=== PATIENT | female | born 1990 | race Caucasian/White ===

== ENCOUNTER 2022-09-26 14:43 | Outpatient (CLI) | payer OTHER, SELFPAY ==
--- NOTE | 2022-09-26 15:00 | CRLHL7_ITS ---
For Patients: As a result of the Cures Act, medical imaging exams and procedure reports are released immediately into your electronic medical record. You may view this report before your referring provider. If you have questions, please contact your health care provider. INDICATION: First trimester scan, establish dates. COMPARISON: None. TECHNIQUE: Real-time michaud-scale imaging of the pelvis was performed. FINDINGS: Sonographic imaging demonstrates a single living intrauterine gestation. The embryo demonstrates a regular cardiac rate measuring 173 beats per minute. The embryo`s crown-rump length measurement of 2.0 cm corresponds to a gestational age of 8 weeks 4 days with a sonographic due date of 05/04/2023. There is a normal-appearing yolk sac. There are no gross abnormalities noted within the embryo at this early state of development. The gestational sac has a normal appearance. There is no evidence of a perigestational hemorrhage. The amount of fluid within the sac appears appropriate for gestational age. The cervix is closed. The myometrium appears normal. The ovaries are of normal size. There are no suspicious fluid collections noted in the cul-de-sac. IMPRESSION: Normal first trimester OB ultrasound exam. Gestational age calculated at 8 weeks 4 days with a sonographic due date of 05/04/2023. Dictated by Nick Harper MD @ 09/27/2022 3:21:14 PM (Electronically Signed)
== END 2022-09-26 14:44 | disposition home or self-care (01) ==
LOC: US 14:46
PROVIDERS: PCP Physician Assistant; Visit Provider Physician Assistant
DX: Z34.91 Encounter for supervision of normal pregnancy, unspecified, first trimester (principal); Z3A.08 8 weeks gestation of pregnancy
CPT/HCPCS: 76817; 86592; 86703; 86762; 86787; 86803; 86850; 86900; 86901; 87086; 87340; 87491; 87591

== ENCOUNTER 2022-12-12 14:56 | Outpatient (CLI) | payer OTHER, SELFPAY ==
--- NOTE | 2022-12-12 15:00 | CRLHL7_ITS ---
For Patients: As a result of the 21st Century Cures Act, medical imaging exams and procedure reports are released immediately into your electronic medical record. You may view this report before your referring provider. If you have questions, please contact your health care provider. OB ULTRASOUND ??? ANATOMY SURVEY JAZIEL by LMP: 05/02/2023. GA: 19 w, 6 d. PREVIOUS: US 09/26/2022. INDICATION: Basic anatomy survey. FINDINGS: position: Breech. Cervix: Visualized. Technique: Transabdominal. Length of closed cervix: 3 cm. Placenta/cord: Posterior. Technique: Transabdominal. Placenta tip to internal OS: 4.3 cm. Umbilical Cord: 3-vessel cord. Placenta insertion: Central. Amniotic Fluid: 4.9 cm SDP (greater than/equal to: 2- less than 8 cm). SURVEY: Observed Structures Cerebellum: Yes. 2.1 cm; 20 w 6 d. Cisterna Magna: Yes. 3.9 mm. Nuchal Fold: Yes. 3.3 mm. Lateral Ventricle: Yes. 7 mm. CSP: Yes. Midline Falx: Yes. Choroid Plexus: Yes. Spine: Yes. Stomach: Yes. Abd Cord Insertion: Suboptimally visualized. Urinary Bladder: Yes. Kidneys: Yes. Diaphragm: Yes. Nose/lips: Yes. Orbital view: Yes. Profile: Yes. Upper Extremities: Yes. Lower Extremities: Yes. Hands: Yes. Feet: Yes. Four-Chamber Heart: Yes. LVOT: Yes. RVOT: Suboptimally visualized. 3VV: Yes. 3VTV: Yes. BPD: 4.9 cm. 21 w 0 d, 88 percent. HC: 18.3 cm. 20 w 5 d, 80 percent. AC: 15.9 cm. 21 w 0 d, 82 percent. FL: 3.2 cm. 19 w 6 d, 46 percent. FL/AC: 20.04 percent. HC/AC Ratio: 1.15. Heart rate: 131 beats per minute. age by this US: 20 w 5 d. JAZIEL by this US: 04/26/2023. EFW: 363 g. Weight: 13 oz. Percentile by JAZIEL: 84 percent. COMMENT: cord insertion is suboptimally visualized. Right ventricular outflow tract is suboptimally visualized. IMPRESSION: Single live intrauterine gestation. No gross anomalies visualized. cord insertion site and right ventricular outflow tract are suboptimally seen. Patricia Farrell M.D. Diagnostic/Breast Radiologist [email or web address]/Dictated by: Patricia Farrell MD @ 12/13/2022 9:03:00 AM (Electronically Signed)
== END 2022-12-12 14:57 | disposition home or self-care (01) ==
LOC: US 14:57
PROVIDERS: PCP Physician Assistant; Visit Provider Physician Assistant
DX: Z34.92 Encounter for supervision of normal pregnancy, unspecified, second trimester (principal); Z3A.19 19 weeks gestation of pregnancy
CPT/HCPCS: 76805

== ENCOUNTER 2023-04-04 14:15 | Outpatient (CLI) | payer OTHER, SELFPAY | END 2023-04-04 14:16 | disposition home or self-care (01) | LOC: NFLDREF 04-06 12:52 | PROVIDERS: PCP Physician Assistant; Referring Provider Physician Assistant; Visit Provider Obstetrics & Gynecology | DX: Z34.90 Encounter for supervision of normal pregnancy, unspecified, unspecified trimester (principal) | CPT/HCPCS: 87081; 87653 ==

== ENCOUNTER 2023-04-27 15:56 | Inpatient (IN) | payer OTHER, SELFPAY ==
[2023-04-27] VITALS (11 sets, daily range): BP systolic 110–136; BP diastolic 58–91; PULSE 80–103; RESP 16; TEMP 36.6–37; O2SAT 97–99; BMI 36.0
--- NOTE | 2023-04-27 16:13 | W.PM.LDBA ---
Subjective History of Present Illness Date Seen: 04/27/23 Narrative: Patient is being admitted to Labor and Delivery for PROM at term. She is a 32 year old woman at 39 2/7 weeks gestation. She had rupture of membranes at home today at around 2:30 PM. While contractions are registering on the monitor, she is not feeling any strong contractions. OB Problem List: Spouse: Tono, baby: boy Plans G1 1. Family history of Hereditary Spastic Paraplegia: Great uncle, uncle, brother Undecided about genetic testing: declined 2. History of anxiety, currently doing well without treatment Flu-declines(09/26/21) Covid-immunized and 1 booster Tdap-02/20/23 Her full history and physical was dictated by Dr. Boudreaux on 04/11/23. Please see this for details. OB - Problem Based A/P Additional Plan (1) PROM (premature rupture of membranes): Problem details: at term. Unfavorable cervix. Status: Acute Plan: Category I tracing. GBS negative. Plan Plan for oral misoprostol if no intensification of contractions in the next hour or so, followed by pitocin for IOL. Continuous monitoring while on pitocin. Delivery/Labor/Induction Plan Plan: induction OB Result Labs GBS Status: negative OB Exam Physical Exam Narrative: Physical exam: General: No acute distress Psych: Alert and oriented x3, full affect HEENT: Normocephalic, atraumatic Heart: Regular rate and rhythm, no murmur rub or gallop Lungs: Clear to auscultation bilaterally Abdomen: Soft, nontender, gravid Lower extremities: No edema or erythema Pelvic exam: Cervical exam per RN: 2.5 cm, 80%,-1 station, posterior , cephalic tracing: Baseline 125 / accels present / no decels / moderate variability.
[2023-04-27] MEDS: miSOPROStoL 25 MCG/0.25 TABLET PO (19:52)
[2023-04-27 20:27] LABS: Basophils Absolute Auto 0.03 K/uL (0.00-0.30); Basophils Percent Auto 0.3 % (0.0-3.0); Eosinophils Absolute Auto 0.12 K/uL (0.00-0.50); Eosinophils Percent Auto 1.1 % (0.0-7.0); Hemoglobin* 11.6 gm/dL (12.0-16.0); Immature Granulocytes Abs Auto 0.07 K/uL (0.00-0.30); Immature Granulocytes Pct Auto 0.6 %; Lymphocytes Absolute Auto 2.21 K/uL (0.90-2.90); Lymphocytes Percent Auto 20.4 % (20-44); Mean Corpuscular HGB Conc 34 gm/dL (32-36); Mean Corpuscular Hemoglobin 33 pg (26-34); Mean Corpuscular Volume 96 fL (80-100); Monocytes Percent Auto 5.1 % (0.0-11.0); Neutrophils Percent Auto 72.5 % (42.0-72.0); Platelet Count* 161 K/uL (140-440); RDW Coefficient of Variation % 12.6 % (11.5-15.5); Red Blood Count 3.54 m/uL (4.00-5.20); White Blood Count* 10.85 K/uL (4.50-11.00)
[2023-04-27 20:29] LABS: Slide Review Reflex No
[2023-04-28] VITALS (84 sets, daily range): BP systolic 89–192; BP diastolic 44–80; PULSE 71–176; RESP 16; TEMP 36.4–37.1; O2SAT 87–100
[2023-04-28] MEDS: LACTATED RINGERS 1000 ML 1,000 ML 125 ML IV (00:07)
[2023-04-28] MEDS: OXYTOCIN 30 unit/500 ML in NS 30 UNIT/500 ML BAG IVPB (00:08)
[2023-04-28] MEDS: LACTATED RINGERS 1000 ML 1,000 ML 1025 ML IV ×4 (04:31→14:00)
[2023-04-28] MEDS: LIDOCAINE 2% (PF) 5 ML VIAL EPIDURAL (04:32)
[2023-04-28] MEDS: ROPIVACAINE 0.2 % PF 10 ML INJ 20 MG EPIDURAL (04:32)
[2023-04-28] MEDS: ROPIVACAINE 0.2% 100 ml 100 ML 12 MG EPIDURAL ×2 (05:08→13:07)
[2023-04-28] MEDS: PHENYLEPHRINE 100 MCG/ML SYRINGE IVP ×4 (05:10→05:26)
--- NOTE | 2023-04-28 05:15 | P.ANBPRC_ITS ---
[facility] Medical History (Updated 04/27/23 @ 16:22 by Renita Boudreaux MD) IBS (irritable bowel syndrome) ?K58.9 - Irritable bowel syndrome without diarrhea (ICD-10) Anxiety ?F41.9 - Anxiety disorder, unspecified (ICD-10) Surgical History (Updated 09/26/22 @ 16:27 by Kassandra Oliver PA-C) History of eye surgery ?Z98.890 - Other specified postprocedural states (ICD-10) Family History (Updated 09/26/22 @ 16:28 by Kassandra Oliver PA-C) Family/Other Hereditary spastic paraplegia Social History (Updated 04/12/23 @ 17:50 by Renita Boudreaux MD) Narrative: She lives in [place] with her . 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 . Nonsmoker. What is your current living situation?: I presently have a place to live Problems where you live: no known problems In the past 12 months, utilities in danger of being shut off: no In the past 12 mos, have been you worried that your food would run out before you had money to buy more?: never true In the past 12 mos, the food you bought just didn't last and you didn't have money to buy more?: never true Smoking Status: Never smoker How often does anyone, including family, friends and others, physically hurt you : never How often does anyone, including family, friends and others, insult or talk down to you: never How often does anyone, including family, friends and others, threaten you with harm: never How often does anyone, including family, friends and others, scream or curse at you: never Little interest or pleasure in doing things: not at all Feeling down, depressed, or hopeless: not at all Meds Home Medications and Allergies Home Medications Medication Instructions Recorded Confirmed Type prenat.vits,lukas,cpi-ammw-xpzxa 1 tab PO QDAY 09/26/22 04/27/23 History Allergies Allergy/AdvReac Type Severity Reaction Status Date / Time ciprofloxacin Allergy Severe Swelling Verified 04/25/23 13:35 of Lip/Tongue/Throat Results Labs Labs: Laboratory Results - last 24 hr 04/27/23 20:20 WBC 10.85 RBC 3.54 L Hgb 11.6 L Hct 34.0 MCV 96 MCH 33 MCHC 34 RDW Coeff of [place]mar 12.6 Plt Count 161 Neut % (Auto) 72.5 H Lymph % (Auto) 20.4 [place] % (Auto) 5.1 Eos % (Auto) 1.1 Baso % (Auto) 0.3 Neut # (Auto) 7.90 H Lymph # (Auto) 2.21 [place] # (Auto) 0.60 Eos # (Auto) 0.12 Baso # (Auto) 0.03 Abs Immat Gran (auto) 0.07 Imm/Tot Granulo (auto) 0.6 Blood Type O Positive Antibody Screen NEGATIVE Vital Signs Vital Signs: Last Vital Signs Temp 97.9 F 04/28/23 04:20 Pulse 97 04/28/23 05:13 Resp 16 04/27/23 18:32 BP 131/59 L 04/28/23 05:13 Pulse Ox 93 04/28/23 05:04 Weight: 98.293 kg Height: 165.1 cm Anesthesia Procedures Epidural Insertion Patient Location: OB Start Time: 04:00 Stop Time: 05:15 Start Date: 04/28/23 Stop Date: 04/28/23 Reason for Block: procedure for pain Patient Position: sitting Performed By: Carl Rascon Preanesthetic Checklist: IV checked, risks and benefits discussed, surgical consent, monitors and equipment checked, pre-op evaluation, timeout performed and anesthesia consent Prep: chlorhexidine gluconate Monitoring: blood pressure monitoring, continuous pulse oximetry and heart rate Approach: midline Vertebral Space: lumbar (1-5) Epidural Technique: SOHA saline Needle Type: Tuohy needle Injection Technique: continuous catheter Needle gauge: 17 Needle Length (cm): 10 cm Needle Insertion Depth (cm): 7 Catheter Gauge: 19 Catheter Type: multi-orifice Catheter at skin depth (cm): 13 Test Dose Result: negative and lidocaine 1.5% with epinephrine 1 to 200,000
[2023-04-28] MEDS: ePHEDrine sulfate 5 MG/ML inj 10 MG IVP (05:32)
--- NOTE | 2023-04-28 09:42 | PM.OBPNL ---
Subjective Time Seen by Provider: 09:43 Date Seen: 04/28/23 Narrative: Feeling better Objective Vital Signs: Last Vital Signs Temp 98.6 F 04/28/23 08:57 Pulse 100 04/28/23 09:28 Resp 16 04/28/23 08:57 BP 127/65 04/28/23 09:28 Pulse Ox 93 04/28/23 05:04 Pelvic Exam Dilation (cm): 9 Effacement (%): 100 Station: +1 Contractions Monitor mode: External Contraction pattern: Regular Contraction intensity: Strong/Firm Pitocin Rate (mU/min): 6 Assessment Assessment: induction ongoing Station: +1 Amniotic Membrane Status: SROM Status: Category l Heart Rate Baseline: 130 Longterm Variability: Moderate (6-25) Monitor Accelerations: Present Monitor Decelerations: None Plan Plan: Continue IV oxytocin titration, expect to start pushing soon.
[2023-04-28] MEDS: ACETAMINOPHEN 500 MG TABLET 1000 MG PO ×2 (10:56→20:34)
[2023-04-28] MEDS: LIDOCAINE 1 % PF 30 ML INJECTION (14:35)
[2023-04-28] MEDS: CEFAZOLIN 2 GM in 0.9 % SODIUM CHLORIDE Mini-bag 100 ML IVPB (15:02)
[2023-04-28] MEDS: KETOROLAC 30 MG/ML inj IVP (15:05)
--- NOTE | 2023-04-28 15:24 | W.PM.OBVAGDE ---
OB Procedure Vag Delivery Mother Details Mother Details: The patient is a 32 year-old, 1, Para 0, admitted on 04/27/23 at 39 3/7 Days gestation. Patient admitted yesterday after SROM, labor augmented with Cytotec x1 and IV oxytocin. Progressed to complete and pushed for about 4 hours. Initially was not pushing effectively due to muscle spasms in her upper extremities, supportive treatment of muscle spasms with heating pads, massage, TENS unit. Continued pushing with good effort and slow progress, I did do a bedside US at around 2 1/2-3 hours of pushing and baby was already +2 station, LOT, manual rotation attempted and this did move baby a little and more movement noticed. : 1 Para: 1 Weeks Gestation: 39.3 Admission Date: 04/27/23 Additional Details Amniotic Membrane Status: SROM Amniotic Membrane Rupture Date: 04/27/23 Amniotic Membrane Rupture Time: 14:30 Amniotic Membrane Fluid Description: Clear Analgesia/Anesthesia Type: Epidural Waterbirth: No Pitcoin: Yes Intrapartal Events: Labor Augmentation and Prolonged 2nd Stage >2.5 Hrs Induction Method: per misoprostol protocol and per pitocin protocol Delivery augmentation: pitocin Labor Onset: 03:15 Complete: 10:05 Pushin:14 Heart: heart tones during second stage were category 2. Deep variable decelerations while , before this time, during second stage mostly early/variables. Delivery Details Delivery Date: 04/28/23 Delivery Time: 14:27 Route of delivery: Infant Gender: Male Viability: Alive; Heart Rate Present Position at Delivery: OA Delivery Details: Delivered over intact perineum via spontaneous vaginal delivery. was placed on maternal abdomen.? Cord was clamped and cut after a 30-60 second delay. Nose and mouth were bulb suctioned.? weight 9 pounds 3 ounces. 1 Minute Interval Total Score: 8 5 Minute Interval Total Score: 8 Additional Details Shoulder Dystocia: No Placenta Delivery Time: 14:31 Placental Delivery Description: Spontaneous Delivery repair: Vicryl Procedure Done: Global Blood Loss: 500 Laceration: Perineal - 3rd Degree (3a, intact external anal sphincter on the right side, on the left side less than 50% of the muscle involved. ) Episiotomy Description: None Blood Loss Measurement Type: QBL Bakri Used: No Sponge/Need Count Correct: Yes Cord Vessel Description: 3 Vessels Event Summary Status: Mother and infant were stable after delivery. Disposition: floor
[2023-04-28] MEDS: LANOLIN CREAM 1 APPLIC TOPICAL (21:25)
[2023-04-28] MEDS: IBUPROFEN 600 MG TABLET PO (23:32)
[2023-04-29] VITALS: BP 93/59; PULSE 91; RESP 16; TEMP 36.5; O2SAT 98
[2023-04-29] MEDS: ACETAMINOPHEN 500 MG TABLET 1000 MG PO ×3 (02:50→20:11)
[2023-04-29 03:30] VITALS: BP 113/71; PULSE 87; RESP 16; TEMP 36.4; O2SAT 97
[2023-04-29] MEDS: IBUPROFEN 600 MG TABLET PO ×3 (06:00→21:55)
[2023-04-29 07:55] LABS: Hemoglobin* 9.4 gm/dL (12.0-16.0)
[2023-04-29] MEDS: DOCUSATE SODIUM 100 MG CAPSULE PO (08:05)
[2023-04-29 08:06] VITALS: BP 109/79; PULSE 87; RESP 16; TEMP 36.5; O2SAT 97
--- NOTE | 2023-04-29 10:00 | P.OBPN_ITS ---
OB - PN:Subj Subjective Date Seen: 04/29/23 Patient comments OB post-: no complaints, pain well controlled, tolerating diet and flatus present [place] status: and doing well [place] feeding status: exclusively Narrative: Alla is a 32 y.o. who was admitted to L & D for delivery after SROM. ?She had an uncomplicated .?The patient feels well. ?The pain is well controlled with current medications. ?She has no new complaints. ?She is breast feeding and reports things are going well.? the patient has done well.? Vitals have been stable.? She has remained afebrile.? Has a good appetite, is tolerating a general diet. ?She is voiding without difficulty.? She is passing gas and has not had a bowel movement.? She is ambulating and denies any dizziness.? Has Small amount of rubra lochia. Anemic, asymptomatic. Increased bleeding after delivery associated to perineal laceration. OB - PN: Obj Exam Physical Exam: Vital signs: Temp Pulse Resp BP Pulse Ox O2 Del Method 97.7 F 87 16 109/79 97 Room Air 04/29/23 08:06 04/29/23 08:06 04/29/23 08:06 04/29/23 08:06 04/29/23 08:06 04/29/23 08:06 Narrative: VITAL SIGNS: As noted above. GENERAL APPEARANCE: Alert, cooperative female in no acute distress. MOOD & AFFECT: Normal. ABDOMEN: Soft, non-distended and and appropriately tender. Well contracted uterus. : Mild to moderate amount of lochia. EXTREMITIES: Bilateral pitting edema +1. Well perfused. Nontender. OB - PN: Obj Data Labs Labs: Laboratory Results - last 24 hr 04/29/23 07:47 Hgb 9.4 L OB - PN: A/P Delivery Assessment and Plan (1) PROM (premature rupture of membranes): Problem details: at term. Unfavorable cervix. Status: Acute (2) Anemia: Status: Acute Assessment and Plan: Added ferrous sulfate supplement every other day. Plan day: 1 Plan: routine care Comments: Would like to continue working on and possibly needing sql server consultant today. If things continue to be stable she would be interested in discharge home tomorrow.
[2023-04-29 12:35] VITALS: BP 107/70; PULSE 87; RESP 16; TEMP 36.5
[2023-04-29 16:08] VITALS: BP 105/71; PULSE 87; RESP 16; TEMP 36.6
[2023-04-29] MEDS: FERROUS SULFATE 325 MG TABLET PO (16:35)
[2023-04-29 19:30] VITALS: BP 112/77; PULSE 94; RESP 16; TEMP 36.4; O2SAT 100
[2023-04-30 03:40] VITALS: BP 111/75; PULSE 84; RESP 16; TEMP 36.3; O2SAT 98
[2023-04-30] MEDS: IBUPROFEN 600 MG TABLET PO (03:44)
--- NOTE | 2023-04-30 07:33 | PM.OBDSVD1 ---
DS: Providers Provider Time Seen by Provider: 07:34 Date Seen: 04/30/23 Date of admission: 04/27/23 15:56 Primary care physician: Not a Local Provider Admitting Clinician: Renita Boudreaux MD Attending Physician on discharge: Renita Boudreaux MD Date of Discharge: 04/30/23 DS: Diagnosis Discharge Diagnosis (1) NVD (normal vaginal delivery): Status: Acute (2) Lactating mother: Status: Acute (3) Third degree laceration of perineum during delivery, : Status: Acute Exam Narrative: Exam Narrative: VSS, afebrile GENERAL APPEARANCE: ?normal affect, alert, no distress MOOD: ?appropriate HEENT: normocephalic, neck supple, full ROM CHEST: ?Symmetrical chest wall movement. ?Normal respiratory effort. ?Clear to auscultation HEART: ?regular rate and rhythm ABDOMEN: ?soft, non-tender. Uterine fundus is firm, at Umbilicus, Midline and is appropriate for the stage of recovery. ?Bowel sounds present. PERINEUM: ?Moderate edema of the perineum, there is a 3rd degree laceration that is healing well. Hemorrhoids also noted. EXTREMITIES: ?normal and +1 edema Const: Vital Signs, click to edit/add: Vital Signs - 24 hr 04/29/23 08:06 04/29/23 12:35 04/29/23 16:08 Temperature 97.7 F 97.7 F 97.8 F Pulse Rate [Pulse Oximeter] 87 87 87 Respiratory Rate 16 16 16 Blood Pressure [Le ft Arm] 109/79 107/70 105/71 Pulse Oximetry 97 Oxygen Delivery Me thod Room Air Room Air Room Air 04/29/23 19:30 04/30/23 03:40 Temperature 97.6 F 97.3 F L Pulse Rate [Pulse Oximeter] 94 84 Respiratory Rate 16 16 Blood Pressure [Le ft Arm] 112/77 111/75 Pulse Oximetry 100 98 Oxygen Delivery Me thod Room Air Room Air Documenting provider has reviewed patient's vital signs: yes OB - DS: Summary Hospital Course Hospital Course: Alla is a 32 y.o. G 1 P 1 who was admitted to L & D for SROM. ?She had an NVD complicated by a 3rd degree laceration. The patient feels well. ?The pain is well controlled with current medications. ?She has no new complaints. ?She is breast feeding and reports things have been some what of a struggle with getting baby to latch.? the patient has done well.? Vitals have been stable.? She has remained afebrile.? Has a good appetite, is tolerating a general diet. ?She is voiding without difficulty.? She is passing gas and has not had a bowel movement.? She is ambulating and denies any dizziness.? Has Small amount of rubra lochia. She is undecided about prevention. Problems: 3rd degree plan: Discharge home with baby. Follow up in 2 weeks and 6 weeks. , may follow up with if needed Acute anemia, continue iron supplementation for 6 weeks 3rd degree -continue stool softeners and miralax to avoid constipation -comfort measures reviewed Peripartum Data delivery method: Vaginal Laceration description: Perineal - 3rd Degree complications: none Infant Gender: Male Infant Discharge Plan: Home Status at Discharge Functional status at discharge: independent ambulation Overall status at discharge: patient is progressing back to baseline Time Spent with Patient Time attestation: Total time spent providing and/or coordinating discharge services: Time spent: Less than 30 minutes Discharge Plan Discharge Disposition: Home, Self-Care Date of Admission: 04/27/23 15:56 Attending Provider on Discharge: Rosanna Lugo Primary Care Provider: Provider,Not a Local Condition: Stable Anticipated Discharge Date/Time: 04/30/23 11:00 Discharge Medications: New docusate sodium 100 mg Capsule 100 mg PO BID Qty: 100 0RF ferrous sulfate 325 mg (65 mg iron) Tablet 325 mg PO Q48H Qty: 25 0RF ibuprofen 600 mg Tablet 600 mg PO Q6H PRNQty: 60 0RF Continued prenat.vits,lukas,tzm-vltu-bhkkj Tablet 1 tab PO QDAY Discharge Orders: Discharge Order (Routine); Ordered 04/30/23 Ordered By: Rosanna Lugo Patient Education: OB Over the Counter Medication Information, OB Vaginal/Bottle Feeding Additional Instructions: Follow up in 2 weeks an 6 weeks Continue colace twice a day, miralax once a day. Increase fiber (can also do Citrucel or Metamucil) and stay hydrated. Can decrease if stools are too loose. Activity Level: Activity as Tolerated Discharge Diet: Regular Follow Up Appointments: Provider,Not a Local [Primary Care Provider] - Forms: MyHealth Info Instructions
[2023-04-30] MEDS: DOCUSATE SODIUM 100 MG CAPSULE PO (09:04)
== END 2023-04-30 12:06 | disposition home or self-care (01) | DRG 768 ==
LOC: OB OUT 15:57 → OB 15:57
PROVIDERS: Obstetrics & Gynecology; Admitting Provider Obstetrics & Gynecology; Visit Provider Obstetrics & Gynecology
DX: O42.02 Full-term premature rupture of membranes, onset of labor within 24 hours of rupture (principal); Z37.0 Single live birth; O70.21 Third degree perineal laceration during delivery, IIIa; D62 Acute posthemorrhagic anemia; O63.1 Prolonged second stage (of labor); O90.81 Anemia of the puerperium; Z3A.39 39 weeks gestation of pregnancy
CPT/HCPCS: 01967; 36415; 85018; 85025; 86850; 86900; 86901; A9270; J0690; J1885; J2001; J2371; J2795; J7120

== ENCOUNTER 2023-07-09 21:54 | Emergency (ER) | payer OTHER, SELFPAY ==
[2023-07-09 22:15] VITALS: BP 107/70; PULSE 98; RESP 16; TEMP 36.7; O2SAT 100
--- NOTE | 2023-07-09 22:47 | ED.ABDPAIN ---
HPI - Abdominal Pain General Chief Complaint: Abdominal Pain Stated Complaint: stomach pains, bleeding from rectum Time Seen by Provider: 07/09/23 22:30 Source: patient, family, RN notes reviewed and old records reviewed Mode of arrival: ambulatory Limitations: no limitations History of Present Illness HPI narrative: 32-year-old female who is about 9 weeks status post vaginal delivery who presents today with abdominal pain and rectal bleeding. She notes some low abdominal discomfort for couple of days, nausea today with no vomiting. Diarrhea today with blood in the stool, no rectal pain. Does feel some low abdominal cramping just prior to needing stool. Denies urinary symptoms. Related Data Home Medications Medication Instructions Recorded Confirmed prenat.vits,lukas,[id number] 1 tab PO QDAY 09/26/22 05/17/23 Allergies Allergy/AdvReac Type Severity Reaction Status Date / Time ciprofloxacin Allergy Severe Swelling Verified 06/11/23 12:58 of Lip/Tongue/Throat PFSH PFSH Medical History (Updated 07/10/23 @ 00:14 by Abdoulaye Pino MD) Third degree laceration of perineum during delivery, ?O70.20 - Third degree perineal laceration during delivery, unspecified (ICD-10) IBS (irritable bowel syndrome) ?K58.9 - Irritable bowel syndrome without diarrhea (ICD-10) Anxiety ?F41.9 - Anxiety disorder, unspecified (ICD-10) Surgical History (Updated 09/26/22 @ 16:27 by Kassandra Oliver PA-C) History of eye surgery ?Z98.890 - Other specified postprocedural states (ICD-10) Family History (Updated 09/26/22 @ 16:28 by Kassandra Oliver PA-C) Family/Other Hereditary spastic paraplegia Social History (Updated 04/12/23 @ 17:50 by Renita Boudreaux MD) Narrative: She lives in [place] with her . 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 . Nonsmoker. What is your current living situation?: I presently have a place to live Problems where you live: no known problems In the past 12 months, utilities in danger of being shut off: no In past 12 months, lack of transportation kept you from medical appts, meetings, work, or getting things needed for daily living: no In the past 12 mos, have been you worried that your food would run out before you had money to buy more?: never true In the past 12 mos, the food you bought just didn't last and you didn't have money to buy more?: never true Smoking Status: Never smoker How often do you have a drink containing alcohol: never AUDIT-C Alcohol total score: 0 Non-prescribed substance use: denies use How often does anyone, including family, friends and others, physically hurt you: never How often does anyone, including family, friends and others, insult or talk down to you: never How often does anyone, including family, friends and others, threaten you with harm: never How often does anyone, including family, friends and others, scream or curse at you: never Little interest or pleasure in doing things: not at all Feeling down, depressed, or hopeless: not at all Exam Narrative: Exam Narrative: General: Well-developed and well-nourished, no acute distress Head: Atraumatic and normocephalic Eyes: Pupils are equal reactive, extraocular motions intact, conjunctiva clear ENT: External nose and ears are normal, posterior pharynx without erythema or exudate Neck: No midline cervical tenderness, full spontaneous range of motion the neck, trachea midline, no adenopathy Heart: Regular rate and rhythm no murmurs or thrills Lungs: Clear to auscultation bilaterally without wheezes or crackles Abdomen: Soft, nontender, nondistended with active bowel sounds Musculoskeletal: No tenderness, deformity, or edema Neurologic: Awake, alert, and oriented x3, no gross focal neurologic deficits, cranial nerves intact as tested Psych: Mood and affect are appropriate Skin: No rashes Rectal: Anterior external hemorrhoid with no active bleeding, no blood in the rectum Const: Vital Signs, click to edit/add: Vital Signs - 24 hr 07/09/23 22:15 Temperature 98.1 F Pulse Rate [Left P ulse Oximeter] 98 Respiratory Rate 16 Blood Pressure [Ri ght Upper Arm] 107/70 Pulse Oximetry 100 Oxygen Delivery Me thod Room Air Course Course ED Course: Patient seen examined, prior records are reviewed. Patient presents today with nausea, low abdominal discomfort and some blood in the stools. No bleeding external hemorrhoids on exam, suspect patient may have an internal fissure but deferred rectal exam. She does have some suprapubic pain and cramping just prior passing stools, consider colitis as well although no tenderness on exam. Labs and CT scan ordered along with fluids and Zofran Reevaluation(s) Time of Reevaluation #1: 00:12 Reevaluation #1: Labs independently interpreted by me with reassuring CBC, normal basic panel. CT scan independently interpreted by me does not demonstrate any acute intra-abdominal findings, radiology interpretation agrees. Patient likely has needle seizure which is causing her bleeding and may be contributing to summer crampy lower pelvic pain, as she is having diarrhea would not start stool softener at this time. Head Zofran for nausea, follow-up with primary care. No acute emergent intra-abdominal pathology identified. Vital Signs Vital signs: Initial Vital Signs Temperature 98.1 F 07/09/23 22:15 Temperature Source Temporal Artery Scan 07/09/23 22:15 Pulse Rate 98 07/09/23 22:15 Pulse Rhythm Regular 07/09/23 22:15 Respiratory Rate 16 07/09/23 22:15 Blood Pressure 107/70 07/09/23 22:15 Blood Pressure Mean 82 07/09/23 22:15 Blood Pressure Position Sitting 07/09/23 22:15 Pulse Oximetry 100 07/09/23 22:15 Oxygen Delivery Method Room Air 07/09/23 22:15 Vital Signs Temperature 98.1 F 07/09/23 22:15 Pulse Rate 98 07/09/23 22:15 Respiratory Rate 16 07/09/23 22:15 Blood Pressure 107/70 07/09/23 22:15 Pulse Oximetry 100 07/09/23 22:15 Oxygen Delivery Method Room Air 07/09/23 22:15 Temperature 98.1 F 07/09/23 22:15 Pulse Rate 98 07/09/23 22:15 Respiratory Rate 16 07/09/23 22:15 Blood Pressure 107/70 07/09/23 22:15 Pulse Oximetry 100 07/09/23 22:15 Oxygen Delivery Method Room Air 07/09/23 22:15 MDM - Abdominal Pain Lab Data Labs: Lab Results 07/09/23 Range/Units 23:10 WBC 9.46 (4.50-11.00) K/uL RBC 4.28 (4.00-5.20) m/uL Hgb 13.5 (12.0-16.0) gm/dL Hct 40.8 (33.0-51.0) % MCV 95 (80-100) fL MCH 32 (26-34) pg MCHC 33 (32-36) gm/dL RDW Coeff of Delmar 11.9 (11.5-15.5) % Plt Count 203 (140-440) K/uL Neut % (Auto) 74.9 H (42.0-72.0) % Lymph % (Auto) 18.6 L (20-44) % Beauregard % (Auto) 5.2 (0.0-11.0) % Eos % (Auto) 0.8 (0.0-7.0) % Baso % (Auto) 0.3 (0.0-3.0) % Neut # (Auto) 7.10 H (1.7-7.0) K/uL Lymph # (Auto) 1.80 (0.90-2.90) K/uL Beauregard # (Auto) 0.50 (0.00-0.90) K/UL Eos # (Auto) 0.08 (0.00-0.50) K/uL Baso # (Auto) 0.03 (0.00-0.30) K/uL Abs Immat Gran (auto) 0.02 (0.00-0.30) K/uL Imm/Tot Granulo (auto) 0.2 % Sodium 138 (135-149) mmol/L Potassium 3.4 L (3.6-5.1) mmol/L Chloride 104 (96-114) mmol/L Carbon Dioxide 27 (20-32) mmol/L Anion Gap 7 (7-15) mEq/L BUN 9 (5-24) mg/dL Creatinine 0.8 (0.5-1.5) mg/dL Estimated GFR 102 ml/min Glucose 111 (60-115) mg/dL Calcium 9.7 (8.4-10.6) mg/dL Discharge Plan Discharge Clinical Impression: Acute diarrhea, Acute anal fissure, Nausea & vomiting Patient Disposition: Home, Self-Care Condition: Stable Instructions: Anal Fissure (ED), Acute Nausea and Vomiting (DC) Additional Instructions: Continue regular diet Take Imodium if you are having more than 4 stools a day Activity Level: Activity as Tolerated Discharge Diet: Regular Prescriptions: No Action prenat.vits,lukas,[id number] Tablet 1 tab PO QDAY Follow Up/Referrals: Provider,Not a Local [Primary Care Provider] - Stand Alone Forms: mo9 ([employer])ealth Info Instructions
--- NOTE | 2023-07-09 23:03 | CRLHL7_ITS ---
For Patients: As a result of the Century Cures Act, medical imaging exams and procedure reports are released immediately into your electronic medical record. You may view this report before your referring provider. If you have questions, please contact your health care provider. INDICATION: Lower abdominal pain, rectal bleeding. TECHNIQUE: CT abdomen and pelvis acquired with 90 cc Isovue 370 IV contrast. COMPARISON: None. FINDINGS: Lower chest: Unremarkable. Liver: Unremarkable. Normal in size and attenuation. No suspicious masses. Gallbladder and bile ducts: Unremarkable. No stones or inflammation. No biliary dilatation. Pancreas: Unremarkable. No mass or inflammation. Spleen: Unremarkable. Normal in size. No masses. Adrenal glands: Unremarkable. No nodules. Kidneys: Unremarkable. No suspicious masses, stones, or hydronephrosis. GI tract: Unremarkable. Normal in caliber. No sign of mass or inflammation. Normal appendix. Vasculature: Abdominal aorta is normal in caliber. Mesenteric arteries are patent. Lymph nodes: No lymphadenopathy. Peritoneum/Abdominal Wall: Unremarkable. No sign of mass or infiltration. No free air or significant free fluid. Pelvis: Trace free fluid likely physiologic. Mildly distended bladder circumferential wall thickening. Bones: Unremarkable for age. IMPRESSION: No acute intra-abdominal/pelvic abnormality. Please note that all CT scans at this facility use dose modulation, iterative reconstruction, and/or weight-based dosing when appropriate to reduce radiation dose to as low as reasonably achievable. Dictated by Buddy Menard MD @ 07/10/2023 12:07:19 AM (Electronically Signed)
[2023-07-09 23:15] LABS: Basophils Absolute Auto 0.03 K/uL (0.00-0.30); Basophils Percent Auto 0.3 % (0.0-3.0); Eosinophils Absolute Auto 0.08 K/uL (0.00-0.50); Eosinophils Percent Auto 0.8 % (0.0-7.0); Hematocrit 40.8 % (33.0-51.0); Hemoglobin* 13.5 gm/dL (12.0-16.0); Immature Granulocytes Abs Auto 0.02 K/uL (0.00-0.30); Immature Granulocytes Pct Auto 0.2 %; Lymphocytes Percent Auto 18.6 % (20-44); Mean Corpuscular HGB Conc 33 gm/dL (32-36); Mean Corpuscular Hemoglobin 32 pg (26-34); Mean Corpuscular Volume 95 fL (80-100); Monocytes Percent Auto 5.2 % (0.0-11.0); Neutrophils Percent Auto 74.9 % (42.0-72.0); Platelet Count* 203 K/uL (140-440); RDW Coefficient of Variation % 11.9 % (11.5-15.5); Red Blood Count 4.28 m/uL (4.00-5.20); White Blood Count* 9.46 K/uL (4.50-11.00)
[2023-07-09] MEDS: 0.9 % SODIUM CHLORIDE 1000 ml 1,000 ML IV (23:17)
[2023-07-09] MEDS: ONDANSETRON 2 MG/ML inj 4 MG IVP (23:17)
[2023-07-09 23:23] LABS: Slide Review Reflex No
[2023-07-09 23:29] LABS: Chloride* 104 mmol/L (96-114); Potassium* 3.4 mmol/L (3.6-5.1); Sodium* 138 mmol/L (135-149)
[2023-07-09 23:31] LABS: Creatinine* 0.8 mg/dL (0.5-1.5); Estimated Glomerular Filt Rate 102 ml/min
[2023-07-09 23:32] LABS: Anion Gap 7 mEq/L (7-15); Blood Urea Nitrogen* 9 mg/dL (5-24); Calcium* 9.7 mg/dL (8.4-10.6); Carbon Dioxide* 27 mmol/L (20-32); Glucose* 111 mg/dL (60-115)
[2023-07-10 00:15] VITALS: BP 120/77; PULSE 62; RESP 16; O2SAT 100
[2023-07-10] MEDS: KETOROLAC 15 MG/ML inj IVP (00:18)
--- NOTE | 2023-07-10 00:26 | PC.NURSE ---
DC accompanied by significant other, no further questions
== END 2023-07-10 00:26 | disposition home or self-care (01) ==
PROVIDERS: Emergency Provider Family Medicine
DX: K62.5 Hemorrhage of anus and rectum (principal); R19.7 Diarrhea, unspecified; R11.2 Nausea with vomiting, unspecified
CPT/HCPCS: 36415; 74177; 80048; 85025; 96374; 96375; 99284; 99285; J1885; J2405; J7030; Q9967

== ENCOUNTER 2023-10-23 12:46 | Outpatient (CLI) | payer OTHER, SELFPAY ==
--- OUTSIDE RECORDS SUMMARY | 2023-10-23 12:48 | XMS_ITS | Clinical Summary ---
Author Name Unknown Organization [employer] [facility] Address [place], [place] [address] Care Team Providers Care Naturalization Examiner Name Role Phone Gorge Oliveros DO Primary Care Provider [phone] Allergies Active Allergy Reactions Criticality Noted Date Comments Ciprofloxacin Rash 06/05/2014 Medications Medication Sig Dispensed Refills Start Date End Date Status norgestimate-ethinyl estradioL (Tri-Sprintec) 0.18/0.215/0.25 mg-35 mcg (28) tabletIndications:Encou nter for surveillance of contraceptive pills Take 1 Tablet by mouth once daily. 84 Tablet 3 06/24/2021 Active Active Problems Problem Noted Date Diagnosed Date Chronic pain of both knees 09/30/2021 Pap smear for cervical cancer screening 09/17/19 22 Overview: 09/2021 NIL. Plan:Pap/HPV due 09/2024 Hypopigmented skin lesion 08/23/2017 Resolved Problems Problem Noted Date Diagnosed Date Resolved Date Preventative health care 08/23/2017 Encounter for surveillance o f contraceptive pills 10/10/2015 09/30/2021 IBS (irritable bowel syndrome) 06/05/2014 08/23/2017 Contraception 03/17/2013 10/10/2015 Adjustment disorder with mix ed anxiety and depressed mood 10/14/2009 09/30/2021 Immunizations Name Administration Dates Next Due COVID-19 vaccine (Neurescue-Bio NTech 30mcg/0.3mL) KYLER HUIZAR 09/30/2021,12/25/2020,12/04/2020 DTP 02/09/1998, 4,08/08/1993,04/26,02/25/1993 HIB PRP-OMP (PedvaxHIB) 03/30/1994,08/08,04/26/1993,02/25 Hepatitis B (Peds) 11/18/1993,04/26/1993, 993 Human Papilloma Virus Vaccine 02/04/2009, 008,06/30/2008 Influenza, IIV4 06/23/2020,08/21/2019 Influenza, IIV4 (=>6mos) MDV 07/15/2019,07/01/20 18 MMR 12/06/2004,03/30/1994 Meningococcal Vaccine (Menveo) 03/22/2011 Oral Polio Vaccine 02/09/1998, 4,04/26/1993,02/25 Td (Age >=7 Years) 09/30/2021,12/06/2004 Tdap 03/22/2011 Family History Medical History Relation Name Comments Other Brother 1 Johnathon Spastic paraple tonie No Known Problems Father Cancer-breast Maternal Grandfather Heart Disease Maternal Grandmother Coronary artery disease Maternal Uncle 1 Diabetes Maternal Uncle 1 Other Maternal Uncle 2 Spastic par aplegia No Known Problems Mother No Known Problems Paternal Grandfather No Known Problems Paternal Grandmother Relation Name Status Comments Brother 1 Johnathon Alive Brother 2 Akshat Alive Father Alive Maternal Grandfather Maternal Grandmother Maternal Uncle 1 Maternal Uncle 2 Mother Alive Paternal Grandfather Alive Paternal Grandmother Alive Social History Tobacco Use Types Packs/Day Years Used Date Smoking Tobacco: Never Smokeless Tobacco: Never Tobacco Cessation:Counseling Given: Yes Alcohol Use Standard Drinks/Week Comments Yes 4 (1 standard drink = 0.6 oz pur e alcohol) occ PHQ-2 Answer Date Recorded PHQ-2 TOTAL SCORE 0 09/30/2021 Social Connections Answer Date Recorded Frequency of Communication with Friends and Fami ly Not on file 09/17/2021 Financial Resource Strain Answer Date R ecorded Difficulty of Paying Living Expenses Not on file 09/17/2021 Difficulty of Paying Living Expenses Not on file 09/17/2021 Sex and Gender Information Value Date Recorded Sex Assigned at Not on file Gender Identity Not on file Sexual Orientation Not on file Obstetrics History Para Term AB IAB SAB Ectopic Multiple Livin g Live Births 0 0 0 0 0 0 0 0 0 0 0 Last Filed Vital Signs Vital Sign Reading Time Taken Comments Blood Pressure 129/87 11/30/2021 4:36 PM CDT Pulse 68 11/30/2021 4:36 PM CDT Temperature 36.8 ??C (98.3 ??F) 11/30/2021 4:36 PM CD T Respiratory Rate 16 06/23/2020 4:20 PM CDT Oxygen Saturation 100% 11/30/2021 4:36 PM CDT Inhaled Oxygen Concentration - - Weight 75.9 kg (167 lb 6.4 oz) 11/30/2021 4:36 P M CDT Height 164.4 cm (5' 4.72) 09/30/2021 12:[address] Body Mass Index 28.09 09/30/2021 12:54 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 Plan of Treatment Health Maintenance Due Date Last Done Comments HIV for age 15-65 12/28/2007 Hepatitis C screening for age 18-79 2010 BMI (ht and wt on same day) for age 18+ 09/30/2022 09/30/2021, 06/23/2020, 09/29/2019, Additional history exists Depression screening for age 12+ 09/30/2022 09/30/2021, 06/24/2021, 06/23/2020, Additional history exists COVID-19 vaccine series ( season) 2023 09/30/2021, 12/25/2020, 12/04/2020 Influenza for age 9-49 05/18/2023 0, 08/21/2019, 07/15/2019, Additional history exists Pap test for age 21-65 09/30/2024 2, 08/23/2017, 07/03/2014 Tetanus booster 09/30/2031 09/30/2021, 07/0 02/2011, 12/06/2004 Tdap Completed 03/22/2011 Pneumococcal series for age 6-64 Aged Out No longer eligible based on patient's age to complete this topic Care Teams Naturalization Examiner Relationship Specialty Start Date End Date Gorge Oliveros DO [address] [place] [address] PCP - General Family Practice 11/28/21
--- NOTE | 2023-10-23 13:00 | CRLHL7_ITS ---
For Patients: As a result of the Century Cures Act, medical imaging exams and procedure reports are released immediately into your electronic medical record. You may view this report before your referring provider. If you have questions, please contact your health care provider. INDICATION: First trimester scan, establish dates. TECHNIQUE: Real-time michaud-scale imaging of the pelvis was performed. FINDINGS: Sonographic imaging demonstrates a single living intrauterine gestation. The embryo demonstrates a regular cardiac rate measuring 179 beats per minute. The embryo`s crown-rump length measurement of 2.3 cm corresponds to a gestational age of 9 weeks 0 days with a sonographic due date of 05/27/2024. There is a normal-appearing yolk sac. IMPRESSION: Normal first trimester OB ultrasound exam. Gestational age calculated at 9 weeks 0 days with a sonographic due date of 05/27/2024 . Dictated by Patricia Farrell MD @ 10/25/2023 7:12:12 AM (Electronically Signed)
== END 2023-10-23 12:47 | disposition home or self-care (01) ==
LOC: US 12:46
PROVIDERS: Visit Provider Advanced Practice Midwife
DX: Z34.91 Encounter for supervision of normal pregnancy, unspecified, first trimester (principal); Z3A.09 9 weeks gestation of pregnancy
CPT/HCPCS: 76817; 86703; 86706; 86803; 86850; 86900; 86901; 87086; 87340

== ENCOUNTER 2023-10-23 14:44 | Outpatient (CLI) | payer OTHER, SELFPAY ==
--- OUTSIDE RECORDS SUMMARY | 2023-10-24 07:05 | XMS_ITS | Clinical Summary ---
Author Name Unknown Organization [employer] [facility] Address [place], [place] [address] Care Team Providers Care Utilization Review Nurse Name Role Phone Gorge Oliveros DO Primary Care Provider [phone] Allergies Active Allergy Reactions Criticality Noted Date [...] Name Administration Dates Next Due COVID-19 vaccine (TapPress-Bio NTech 30mcg/0.3mL) KYLER HUIZAR 09/30/2021,12/25/2020,12/04/2020 DTP 02/09/1998, [...] Body Mass Index 28.09 09/30/2021 12:54 PM CUT PLUG PACKER Plan of Treatment Health Maintenance Due Date [...] age to complete this topic Care Teams Utilization Review Nurse Relationship Specialty Start Date End Date Gorge Oliveros DO [address] [place] [address] PCP - General Family Practice 11/28/21
== END 2023-10-23 14:45 | disposition home or self-care (01) ==
LOC: NFLDREF 10-24 07:04
PROVIDERS: Visit Provider Advanced Practice Midwife
DX: Z34.81 Encounter for supervision of other normal pregnancy, first trimester (principal)
CPT/HCPCS: 86592; 86703; 86704; 86706; 86762; 86787; 86803; 86850; 86900; 86901; 87086; 87340

== ENCOUNTER 2024-01-11 10:03 | Outpatient (CLI) | payer OTHER, SELFPAY ==
--- NOTE | 2024-01-11 10:12 | US_ITS ---
Patient: JOSEPH TRUONG Facility:?[facility] Patient ID:?[id number] Site Patient ID:?[id number]. Site :?[id number] Study:?US-OB Pelvis anatomy-01/11/2024 11:19:16 AM Ordering Physician:Candelaria Hurley Final Report: HISTORY: anatomic survey. COMPARISON: None available of this gestation. TECHNIQUE: Ultrasound examination of the is performed with transabdominal technique. FINDINGS: A single intrauterine gestation is seen in breech presentation with regular cardiac activity at 141 beats per minute. The placenta is anterior and is free of the cervical os. The placental grade is 1 and the amniotic fluid volume is normal. Single deepest vertical pocket: Normal at 6.2 cm. Is nondilated and normal in length at 4.6 centimeters. BPD: 5.0 cm 21 weeks 1 day HC: 18.1 cm 20 weeks 3 days AC: 16.4 cm 21 weeks 3 days FL: 3.1 cm 19 weeks 5 days The estimated age by ultrasound is 21 weeks 1 day, with an estimated date of delivery of 05/22/2024. This correlates well with the clinical age of 20 weeks 3 days. The ultrasound ratios are normal. Estimated weight is 370 grams which is at the 58th percentile based on the clinical dates. The anatomic survey demonstrates normal appearing intracranial structures with a normal septum pellucidum and normal cerebellum. The nuchal thickness is normal at 5 mm, and the lateral ventricle is normal in diameter at 6 mm. The upper lip, 4 chamber heart, diaphragm, stomach, cord insertion site, 3-vessel cord, kidneys, bladder and spine are normal in appearance. The left and right outflow tracts and additional cardiac views are not well seen due to position. IMPRESSION: 1. Single intrauterine gestation in cephalic presentation with regular cardiac activity. 2. Estimated gestational age is 21 weeks 1 day. 3. Estimated weight is 370 grams which is at the 58th percentile based on the clinical dates. 4. The left and right outflow tracts and additional cardiac views are not well seen due to position. Dictated by Pedro Art MD @ 01/12/2024 10:21:53 PM Signed by:?Pedro Art MD @01/12/2024 10:21:53 PM (Electronic Signature)
== END 2024-01-11 10:04 | disposition home or self-care (01) ==
LOC: US 10:03
PROVIDERS: Visit Provider Obstetrics & Gynecology
DX: Z34.92 Encounter for supervision of normal pregnancy, unspecified, second trimester (principal); Z3A.21 21 weeks gestation of pregnancy; H04.123 Dry eye syndrome of bilateral lacrimal glands
CPT/HCPCS: 76805; 86039; 86235; 86431

== ENCOUNTER 2024-01-24 07:13 | Outpatient (CLI) | payer OTHER, SELFPAY ==
--- OUTSIDE RECORDS SUMMARY | 2024-01-24 07:16 | XMS_ITS | Clinical Summary ---
Author Name Unknown Organization [facility] Address [place], [place] [address] Care Team Providers Care Lawn Service Manager Name Role Phone Gorge Oliveros DO Primary Care Provider [phone] Allergies Active Allergy Reactions Criticality Noted Date [...] Name Administration Dates Next Due COVID-19 vaccine (DSTLD-Bio NTech 30mcg/0.3mL) KYLER HUIZAR 09/30/2021,12/25/2020,12/04/2020 DTP 02/09/1998, [...] Body Mass Index 28.09 09/30/2021 12:54 PM FINISHING POWDER PRESS OPERATOR Plan of Treatment Health Maintenance Due Date [...] 09/30/2021, 12/25/2020, 12/04/2020 Influenza for age 9-49 05/18/2024 0, 08/21/2019, 07/15/2019, Additional history exists Pap test for age 21-65 09/30/2024 2, 08/23/2017, 07/03/2014 Tetanus booster 09/30/2031 09/30/2021, 07/0 02/2011, 12/06/2004 Tdap Completed 03/22/2011 Pneumococcal series for age 6-64 Aged Out No longer eligible based on patient's age to complete this topic Procedures Procedure Name Priority Date/Time Associated Diagnosis Comments OPERATIONS RESEARCH GROUP MANAGER THIN PREP PAP SCREEN IMAGED Routine 09/30/2021 1:36 PM FINISHING POWDER PRESS OPERATOR Screening for cervical cancer from Last 3 Months or Most Recently Relevant to Health Maintenance Results * OPERATIONS RESEARCH GROUP MANAGER THIN PREP PAP SCREEN IMAGED [[id number]] (09/30/2021 1:36 PM FINISHING POWDER PRESS OPERATOR) Case Report Gynecologic Cytology Report ? Case: [id number] ? Authorizing Provider: ??Marianne Oliveros, ? Collected: ? 09/30/2021 1336 ? Ordering Location: ? [facility] ?? Received: ?09/30/2021 1357 ? Clinic ? First Screen: ?David Urbano ? Specimen: ?OPERATIONS RESEARCH GROUP MANAGER ThinPrep Vial Screening, Cervical ? 10/07/2021 1:17 PM FINISHING POWDER PRESS OPERATOR [facility] INTERPRETATION/ RESULT NEGATIVE FOR INTRAEPITHELIAL LESION OR MALIGNANCY (NIL) (none) 10/07/2021 1:17 PM FINISHING POWDER PRESS OPERATOR [facility] IMEN ADEQUACY Satisfactory for evaluation Endocervical component present 10/07/2021 1:17 PM FINISHING POWDER PRESS OPERATOR [facility] HPV REQUEST HPV if ASCUS 10/07/2021 1:17 PM FINISHING POWDER PRESS OPERATOR [facility] Date of LMP 09/05/2021 10/07/2021 1:17 PM FINISHING POWDER PRESS OPERATOR [facility] Last Pap Date 08/23/17 10/07/2021 1:17 PM FINISHING POWDER PRESS OPERATOR [facility] Last Pap Result NIL 1:17 PM FINISHING POWDER PRESS OPERATOR [facility] Abnormal Pap or [place] Bx in last 5 years No 10/07/2021 1:17 PM FINISHING POWDER PRESS OPERATOR [facility] Menstrual Status Regular Periods 10/07/2021 1:17 PM FINISHING POWDER PRESS OPERATOR [facility] [place] Bx Done Today No 10/07/2021 1:17 PM FINISHING POWDER PRESS OPERATOR [facility] Additional Information None given 10/07/2021 1:17 PM FINISHING POWDER PRESS OPERATOR [facility] Comment: Cytology is screened at [facility] - [address], [place] [address] and [facility] - [address] [facility] [place] [address] and [facility] - [address] [place] [address] Interpreted at [facility] - [address], [place] [address] Automated Review Successful 10/07/2021 1:17 PM FINISHING POWDER PRESS OPERATOR [facility] Comment:Specimen processed s uccessfully by automated iron handler device, ThinPrep Imaging System, [employer] Note The pap test is a screening technique, not a diagnostic procedure. It is used primarily to screen for squamous cancers and precursor lesions. Published studies have shown that it is subject to both false negative and false positive results. The pap test should not be used as the sole means to diagnose or exclude pre-malignant and malignant lesions. 10/07/2021 1:17 PM FINISHING POWDER PRESS OPERATOR [facility] Other (Cervical) Non-Blood / Unknown 09/30/2021 1:36 PM FINISHING POWDER PRESS OPERATOR 09/30/2021 1:57 PM FINISHING POWDER PRESS OPERATOR Marianne Oliveros DO PATHOLOGY/CYTOLOGY [facility] [address] [place] [address], from Last 3 Months or Most Recently Relevant to Health Maintenance Care Teams Lawn Service Manager Relationship Specialty Start Date End Date Gorge Oliveros DO [address] [place] [address] PCP - General Family Practice 11/28/21
--- NOTE | 2024-01-24 07:19 | US_ITS ---
Patient: JOSEPH TRUONG Facility:?[facility] Patient ID:?[id number] Site Patient ID:?[id number]. Site :?[id number] Study:?US-OB Pelvis FOLLOW UP-01/24/2024 8:05:16 AM Ordering Physician:?ANTONIO ARGUELLO Final Report: HISTORY: Completion of anatomic survey. COMPARISON: Ob ultrasound from 01/11/2024 TECHNIQUE: Ultrasound examination of the is performed with transabdominal technique. FINDINGS: A single intrauterine gestation is seen in cephalic presentation with regular cardiac activity at 137 beats per minute. The placenta is anterior and is free of the cervical os. The placental grade is I and the amniotic fluid volume is normal. Single deepest vertical pocket: Normal at 5.9 cm. Images of the heart are normal in appearance, with normal four-chamber view, left right ventricular outflow tract, 3VTV and 3VV views. IMPRESSION: 1. Single intrauterine gestation in cephalic presentation with regular cardiac activity. 2. Normal examination of the cardiac structures, completing the anatomic survey. Dictated by Pedro Art MD @ 01/24/2024 11:20:35 AM Signed by:?Perdo Art MD @01/24/2024 11:20:35 AM (Electronic Signature)
== END 2024-01-24 07:14 | disposition home or self-care (01) ==
LOC: US 07:14
PROVIDERS: Visit Provider Obstetrics & Gynecology
DX: Z34.90 Encounter for supervision of normal pregnancy, unspecified, unspecified trimester (principal)
CPT/HCPCS: 76816

== ENCOUNTER 2024-03-06 11:00 | Outpatient (CLI) | payer OTHER, SELFPAY ==
--- OUTSIDE RECORDS SUMMARY | 2024-03-10 18:59 | XMS_ITS | Clinical Summary ---
Author Organization [employer] [facility] Address [place], [place] [address] Care Team Providers Care Eligibility Specialist Name Role Phone Gorge Oliveros DO Primary Care Provider [phone] Allergies Active Allergy Reactions Criticality Noted Date [...] Name Administration Dates Next Due COVID-19 vaccine (GamervisionBio NTech 30mcg/0.3mL) KYLER HUIZAR 09/30/2021,12/25/2020,12/04/2020 DTP 02/09/1998, [...] Body Mass Index 28.09 09/30/2021 12:54 PM INVESTMENT MANAGER Plan of Treatment Health Maintenance Due Date [...] Procedure Name Priority Date/Time Associated Diagnosis Comments OUTBOARD SYSTEM OPERATOR THIN PREP PAP SCREEN IMAGED Routine 09/30/2021 1:36 PM INVESTMENT MANAGER Screening for cervical cancer from Last 3 Months or Most Recently Relevant to Health Maintenance Results * OUTBOARD SYSTEM OPERATOR THIN PREP PAP SCREEN IMAGED [[id number]] (09/30/2021 1:36 PM INVESTMENT MANAGER) Case Report Gynecologic Cytology Report ? Case: [id number] ? Authorizing Provider: ??Marianne Oliveros, ? Collected: ? 09/30/2021 1336 ? Ordering Location: ? [facility] ?? Received: ?09/30/2021 1357 ? Clinic ? First Screen: ?David Urbano ? Specimen: ?OUTBOARD SYSTEM OPERATOR ThinPrep Vial Screening, Cervical ? 10/07/2021 1:17 PM INVESTMENT MANAGER [facility] ENTRAL LABORATORY INTERPRETATION/ RESULT NEGATIVE FOR INTRAEPITHELIAL LESION OR MALIGNANCY (NIL) (none) 10/07/2021 1:17 PM INVESTMENT MANAGER [facility] IMEN ADEQUACY Satisfactory for evaluation Endocervical component present 10/07/2021 1:17 PM INVESTMENT MANAGER [facility] HPV REQUEST HPV if ASCUS 10/07/2021 1:17 PM INVESTMENT MANAGER [facility] Date of LMP 09/05/2021 10/07/2021 1:17 PM INVESTMENT MANAGER [facility] Last Pap Date 08/23/17 10/07/2021 1:17 PM INVESTMENT MANAGER [facility] Last Pap Result NIL 1:17 PM INVESTMENT MANAGER [facility] Abnormal Pap or [place] Bx in last 5 years No 10/07/2021 1:17 PM INVESTMENT MANAGER [facility] Menstrual Status Regular Periods 10/07/2021 1:17 PM INVESTMENT MANAGER [facility] Stone Bx Done Today No 10/07/2021 1:17 PM INVESTMENT MANAGER [facility] Additional Information None given 10/07/2021 1:17 PM INVESTMENT MANAGER [facility] Comment: Cytology is screened at [facility], Central Laboratory - [address], [place] [address] and [facility] - [address] [place] [address] and [facility] - [address] [place] [address] [facility] Central Laboratory - [address] [address] Automated Review Successful 10/07/2021 1:17 PM INVESTMENT MANAGER [facility] Comment:Specimen processed s uccessfully by automated corporate paralegal device, ThinPrep Imaging System, [employer] Note The pap test is a screening technique, not a diagnostic procedure. It is used primarily to screen for squamous cancers and precursor lesions. Published studies have shown that it is subject to both false negative and false positive results. The pap test should not be used as the sole means to diagnose or exclude pre-malignant and malignant lesions. 10/07/2021 1:17 PM INVESTMENT MANAGER [facility] LABORATORY-C ENTRAL LABORATORY Other (Cervical) Non-Blood / Unknown 09/30/2021 1:36 PM INVESTMENT MANAGER 09/30/2021 1:57 PM INVESTMENT MANAGER Marianne Oliveros DO PATHOLOGY/CYTOLOGY [facility] LABORAT[facility]-CENTRAL LABORATORY [address] [place] [address], from Last 3 Months or Most Recently Relevant to Health Maintenance Care Teams Eligibility Specialist Relationship Specialty Start Date End Date Gorge Oliveros DO [address] [place] [address] PCP - General Family Practice 11/28/21
== END 2024-03-06 11:01 | disposition home or self-care (01) ==
LOC: NFLDREF 03-10 18:58
PROVIDERS: Visit Provider Obstetrics & Gynecology
DX: Z34.93 Encounter for supervision of normal pregnancy, unspecified, third trimester (principal); Z3A.28 28 weeks gestation of pregnancy
CPT/HCPCS: 86592

== ENCOUNTER 2024-04-30 12:01 | Outpatient (CLI) | payer OTHER, SELFPAY ==
--- OUTSIDE RECORDS SUMMARY | 2024-04-30 12:02 | XMS_ITS | Clinical Summary ---
Author Organization [employer] [facility] Address [place], [place] [address] Care Team Providers Care Sql Server Developer Name Role Phone Gorge Oliveros DO Primary Care Provider [phone] Allergies Active Allergy Reactions Criticality Noted Date [...] Name Administration Dates Next Due COVID-19 vaccine (KeraNeticsBio NTech 30mcg/0.3mL) KYLER HUIZAR 09/30/2021,12/25/2020,12/04/2020 DTP 02/09/1998, [...] Body Mass Index 28.09 09/30/2021 12:54 PM TEAM LEADER/RESEARCH PSYCHOLOGIST Plan of Treatment Health Maintenance Due Date [...] Procedure Name Priority Date/Time Associated Diagnosis Comments FIRESTOP/CONTAINMENT WORKER THIN PREP PAP SCREEN IMAGED Routine 09/30/2021 1:36 PM TEAM LEADER/RESEARCH PSYCHOLOGIST Screening for cervical cancer from Last 3 Months or Most Recently Relevant to Health Maintenance Results * FIRESTOP/CONTAINMENT WORKER THIN PREP PAP SCREEN IMAGED [[id number]] (09/30/2021 1:36 PM TEAM LEADER/RESEARCH PSYCHOLOGIST) Case Report Gynecologic Cytology Report ? Case: [id number] ? Authorizing Provider: ??Marianne Oliveros, ? Collected: ? 09/30/2021 1336 ? Ordering Location: ? [facility] ?? Received: ?09/30/2021 1357 ? Clinic ? First Screen: ?David Urbano ? Specimen: ?FIRESTOP/CONTAINMENT WORKER ThinPrep Vial Screening, Cervical ? 10/07/2021 1:17 PM TEAM LEADER/RESEARCH PSYCHOLOGIST [facility]-C ENTRAL LABORATORY INTERPRETATION/ RESULT NEGATIVE FOR INTRAEPITHELIAL LESION OR MALIGNANCY (NIL) (none) 10/07/2021 1:17 PM TEAM LEADER/RESEARCH PSYCHOLOGIST [facility] LABORATORY IMEN ADEQUACY Satisfactory for evaluation Endocervical component present 10/07/2021 1:17 PM TEAM LEADER/RESEARCH PSYCHOLOGIST [facility] ENTRAL LABORATORY HPV REQUEST HPV if ASCUS 10/07/2021 1:17 PM TEAM LEADER/RESEARCH PSYCHOLOGIST [facility] ENTRAL LABORATORY Date of LMP 09/05/2021 10/07/2021 1:17 PM TEAM LEADER/RESEARCH PSYCHOLOGIST [facility] ENTRAL LABORATORY Last Pap Date 08/23/17 10/07/2021 1:17 PM TEAM LEADER/RESEARCH PSYCHOLOGIST [facility] EN[facility]AL LABORAT[facility] Last Pap Result NIL 1:17 PM TEAM LEADER/RESEARCH PSYCHOLOGIST [facility] EN[facility] LAB[facility] Abnormal Pap or [place] Bx in last 5 years No 10/07/2021 1:17 PM TEAM LEADER/RESEARCH PSYCHOLOGIST [facility] EN[facility] LAB[facility]ORY Menstrual Status Regular Periods 10/07/2021 1:17 PM TEAM LEADER/RESEARCH PSYCHOLOGIST [facility] [place] Bx Done Today No 10/07/2021 1:17 PM TEAM LEADER/RESEARCH PSYCHOLOGIST [facility] Additional Information None given 10/07/2021 1:17 PM TEAM LEADER/RESEARCH PSYCHOLOGIST [facility] EN[facility] Comment: Cytology is screened at [facility], Central Laboratory - [address], [place] [address] and [facility] Laboratory - [address] [place] [address] and [facility] - [address] [place] [address] Interpreted at [facility] Central Laboratory - [address], [place] [address] Automated Review Successful 10/07/2021 1:17 PM TEAM LEADER/RESEARCH PSYCHOLOGIST [facility] Comment:Specimen processed s uccessfully by automated rip machine operator device, ThinPrep Imaging System, [employer] Note The pap test is a screening technique, not a diagnostic procedure. It is used primarily to screen for squamous cancers and precursor lesions. Published studies have shown that it is subject to both false negative and false positive results. The pap test should not be used as the sole means to diagnose or exclude pre-malignant and malignant lesions. 10/07/2021 1:17 PM TEAM LEADER/RESEARCH PSYCHOLOGIST [facility] LAB[facility]-C ENTRAL LABORATORY Other (Cervical) Non-Blood / Unknown 09/30/2021 1:36 PM TEAM LEADER/RESEARCH PSYCHOLOGIST 09/30/2021 1:57 PM TEAM LEADER/RESEARCH PSYCHOLOGIST Marianne Oliveors DO PATHOLOGY/CYTOLOGY [facility]ORAT[facility]-CENTRAL LABORATORY [address] [place] [address], from Last 3 Months or Most Recently Relevant to Health Maintenance Care Teams Sql Server Developer Relationship Specialty Start Date End Date G[place] [address] [place] [address] PCP - General Family Practice 11/28/21
[2024-05-01 12:37] LABS: Strep B DNA Probe Negative (Negative)
[2024-05-01 12:41] LABS: Strep B Susceptibility Needed? No
== END 2024-04-30 12:02 | disposition home or self-care (01) ==
LOC: NFLDREF 12:01
PROVIDERS: Visit Provider Obstetrics & Gynecology
DX: Z34.90 Encounter for supervision of normal pregnancy, unspecified, unspecified trimester (principal)
CPT/HCPCS: 87081; 87653

== ENCOUNTER 2024-05-29 11:00 | Inpatient (IN) | payer OTHER, SELFPAY ==
[2024-05-29] VITALS (63 sets, daily range): BP systolic 100–132; BP diastolic 55–84; PULSE 67–221; RESP 16; TEMP 36.3–36.8; O2SAT 81–100; BMI 36.1
--- OUTSIDE RECORDS SUMMARY | 2024-05-29 10:29 | XMS_ITS | Clinical Summary ---
Author Organization [employer] [facility] Address [place], [place] [address] Care Team Providers Care Nascar Pit Crew Person Name Role Phone Gorge Oliveros DO Primary Care Provider Allergies Active Allergy Reactions Criticality Noted Date [...] smear for cervical cancer screening 09/17/19 22 Overview (10/26/2021): 09/2021 NIL. Plan:Pap/HPV due 09/2024 Hypopigmented skin lesion 08/23/2017 Resolved Problems Problem Noted Date Diagnosed Date Resolved Date Preventative health care 08/23/2017 Encounter for surveillance o f contraceptive pills 10/10/2015 09/30/2021 IBS (irritable bowel syndrome) 06/05/2014 08/23/2017 Contraception 03/17/2013 10/10/2015 Adjustment disorder with mix ed anxiety and depressed mood 10/14/2009 09/30/2021 Immunizations Name Administration Dates Next Due COVID-19 vaccine (JivoxBio NTech 30mcg/0.3mL) PFMDV 09/30/2021,12/25/2020,12/04/2020 DTP 02/09/1998, 4,08/08/1993,04/26,02/25/1993 HIB PRP-OMP (PedvaxHIB) 03/30/1994,08/08,04/26/1993,02/25 Hepatitis B (Peds) 11/18/1993,04/26/1993, 993 Human Papilloma Virus Vaccine 02/04/2009, 008,06/30/2008 Influenza, IIV4 06/23/2020,08/21/2019 Influenza, IIV4 (=>6mos) MDV 07/15/2019,07/01/20 18 MENINGOCOCCAL VACCINE 2 VIAL 2MO-55YO (MENVEO) 03/22/2011 MMR 12/06/2004,03/30/1994 Oral Polio Vaccine 02/09/1998, 4,04/26/1993,02/25 Td (Age [...] Body Mass Index 28.09 09/30/2021 12:54 PM UTILIZATION MANAGER Plan of Treatment Health Maintenance Due Date Last Done Comments HIV for age 15-65 12/28/2007 Hepatitis C screening for age 18-79 2010 BMI (ht and wt on same day) for age 18+ 09/30/2022 09/30/2021, 06/23/2020, 09/29/2019, Additional history exists Depression screening for age 12+ 09/30/2022 09/30/2021, 06/24/2021, 06/23/2020, Additional history exists COVID-19 vaccine series ( season) 2024 09/30/2021, 12/25/2020, 12/04/2020 Influenza for age 9-49 05/18/2024 0, 08/21/2019, 07/15/2019, Additional history exists Pap test for age 21-65 09/30/2024 2, 08/23/2017, 07/03/2014 Tetanus booster 09/30/2031 09/30/2021, 07/0 02/2011, 12/06/2004 Tdap Completed 03/22/2011 Pneumococcal series for age 6-64 Aged Out No longer eligible based on patient's age to complete this topic Procedures Procedure Name Priority Date/Time Associated Diagnosis Comments COMPENSATION BUSINESS PARTNER THIN PREP PAP SCREEN IMAGED Routine 09/30/2021 1:36 PM UTILIZATION MANAGER Screening for cervical cancer from Last 3 Months or Most Recently Relevant to Health Maintenance Results * COMPENSATION BUSINESS PARTNER THIN PREP PAP SCREEN IMAGED [[id number]] (09/30/2021 1:36 PM UTILIZATION MANAGER) Case Report Gynecologic Cytology Report ? Case: [id number] ? Authorizing Provider: ??Marianne Oliveros, DO ? Collected: ? 09/30/2021 1336 ? Ordering Location: ? [facility] ?? Received: ?09/30/2021 1357 ? Clinic ? First Screen: ?David Urbano ? Specimen: ?COMPENSATION BUSINESS PARTNER ThinPrep Vial Screening, Cervical ? 10/07/2021 1:17 PM UTILIZATION MANAGER [facility] ENTRAL LABORATORY INTERPRETATION/ RESULT NEGATIVE FOR INTRAEPITHELIAL LESION OR MALIGNANCY (NIL) (none) 10/07/2021 1:17 PM UTILIZATION MANAGER [facility] IMEN ADEQUACY Satisfactory for evaluation Endocervical component present 10/07/2021 1:17 PM UTILIZATION MANAGER [facility] HPV REQUEST HPV if ASCUS 10/07/2021 1:17 PM UTILIZATION MANAGER [facility] Date of LMP 09/05/2021 10/07/2021 1:17 PM UTILIZATION MANAGER [facility] Last Pap Date 08/23/17 10/07/2021 1:17 PM UTILIZATION MANAGER [facility] Last Pap Result NIL 1:17 PM UTILIZATION MANAGER [facility] Abnormal Pap or [place] Bx in last 5 years No 10/07/2021 1:17 PM UTILIZATION MANAGER [facility] Menstrual Status Regular Periods 10/07/2021 1:17 PM UTILIZATION MANAGER [facility] [place] Bx Done Today No 10/07/2021 1:17 PM UTILIZATION MANAGER [facility] Additional Information None given 10/07/2021 1:17 PM UTILIZATION MANAGER [facility] Comment: Cytology is screened at [facility], Central Laboratory - [address], [place] [address] and [facility] - [address] [place] [address] and [facility] Laboratory - [address] [place] [address] Interpreted at [employer] Central Laboratory - [address], [place] [address] Automated Review Successful 10/07/2021 1:17 PM UTILIZATION MANAGER [facility] Comment:Specimen processed s uccessfully by automated snowmobile mechanic device, ThinPrep Imaging System, [employer] Note The pap test is a screening technique, not a diagnostic procedure. It is used primarily to screen for squamous cancers and precursor lesions. Published studies have shown that it is subject to both false negative and false positive results. The pap test should not be used as the sole means to diagnose or exclude pre-malignant and malignant lesions. 10/07/2021 1:17 PM UTILIZATION MANAGER [facility]-C ENTRAL LABORATORY Other (Cervical) Non-Blood / Unknown 09/30/2021 1:36 PM UTILIZATION MANAGER 09/30/2021 1:57 PM UTILIZATION MANAGER Marianne Oliveros DO PATHOLOGY/CYTOLOGY [employer] [facility]-CENTRAL LABORATORY [address] [place] [address], from Last 3 Months or Most Recently Relevant to Health Maintenance Care Teams Nascar Pit Crew Person Relationship Specialty Start Date End Date Gorge Oliveros DO [address] [place] [address] PCP - General Family Practice 11/28/21
[2024-05-29] MEDS: LACTATED RINGERS 1000 ML 1,000 ML 1200 ML IV ×2 (11:10→12:01)
[2024-05-29 11:15] LABS: Basophils Absolute Auto 0.04 K/uL (0.00-0.30); Basophils Percent Auto 0.4 % (0.0-3.0); Eosinophils Absolute Auto 0.13 K/uL (0.00-0.50); Eosinophils Percent Auto 1.3 % (0.0-7.0); Hematocrit 34.9 % (33.0-51.0); Hemoglobin* 11.6 gm/dL (12.0-16.0); Immature Granulocytes Abs Auto 0.06 K/uL (0.00-0.30); Immature Granulocytes Pct Auto 0.6 %; Lymphocytes Percent Auto 16.6 % (20-44); Mean Corpuscular HGB Conc 33 gm/dL (32-36); Mean Corpuscular Hemoglobin 32 pg (26-34); Mean Corpuscular Volume 96 fL (80-100); Monocytes Percent Auto 5.5 % (0.0-11.0); Neutrophils Percent Auto 75.6 % (42.0-72.0); Platelet Count* 132 K/uL (140-440); RDW Coefficient of Variation % 12.7 % (11.5-15.5); Red Blood Count 3.63 m/uL (4.00-5.20); White Blood Count* 10.05 K/uL (4.50-11.00)
[2024-05-29 11:17] LABS: Slide Review Reflex No
--- NOTE | 2024-05-29 11:25 | W.PM.LDBA ---
Subjective History of Present Illness Narrative: Patient is being admitted to Labor and Delivery, in labor for delivery. She is a 33 year old at 40 2/7 weeks gestation. Her full history and physical was dictated by Dr. Mckeon on 05/07/24. Please see this for details. Specific Issues/Plans 1. Short interval Last 04/28/2023 2. Hx of 3rd degree laceration 3a, intact external anal sphincter on the right side, on the left side less than 50% of the muscle involved 3. Family history of Hereditary Spastic Paraplegia: Great uncle, uncle, brother Genetic testing offered: Declines at this time 4. History of anxiety, currently doing well without treatment 5. Hep B surface antibody negative 6. Severe eye dryness that started 3-4 months -Utilizing hydrating eye drops, failed steroid drops [ x] f/u rheumatologic labs (psb Sjogren's) : normal labs Contraception: condoms TDAP 03/19/24 mental health: 04/02/24 H&P Mike on 05/07 OB - Problem Based A/P Additional Plan (1) : Status: Acute Plan 1. In active labor, expectant management at this moment. 2. Plans epidural for pain management. 3. GBS negative, no antibiotics indicated. OB Exam Physical Exam Vital signs: Pulse BP Pulse Ox 82 131/82 99 05/29/24 10:29 05/29/24 10:29 05/29/24 10:29 Detailed Labor and Delivery Exam Patient Gravid: Yes Dilation (cm): 7 Effacement (%): 100 Cervix position: anterior Consistency: soft Tachysystole: No Contraction intensity: Moderate Fetus (Single) Station: -1 Amniotic Membrane Status: intact Heart Rate Baseline: 130 Monitor Accelerations: Present Monitor Decelerations: Early Oracle Reports Developer Variability: Moderate (6-25)
[2024-05-29] MEDS: LIDOCAINE 2% (PF) 5 ML VIAL EPIDURAL (12:07)
[2024-05-29] MEDS: ROPIVACAINE 0.2% 100 ml 100 ML 12 MG EPIDURAL (12:07)
--- NOTE | 2024-05-29 12:07 | P.ANBPRC_ITS ---
[facility] Medical History Evaluate anatomy not seen on prior sonogram Anemia ?D64.9 - Anemia, unspecified (ICD-10) Third degree laceration of perineum during delivery, ?O70.20 - Third degree perineal laceration during delivery, unspecified (ICD- 10) IBS (irritable bowel syndrome) ?K58.9 - Irritable bowel syndrome without diarrhea (ICD-10) Anxiety ?F41.9 - Anxiety disorder, unspecified (ICD-10) Surgical History History of eye surgery ?Z98.890 - Other specified postprocedural states (ICD-10) Family History Family/Other Hereditary spastic paraplegia Social History Narrative: SOCIAL Education: Bachelors 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 Partner: Tono, same Lives with: Partner and 1 child Pets: No Abuse: Denies past/present Special Diet: Denies Ok with a blood transfusion: yes Culture or zoroastrianism beliefs: denies RISK FACTORS Exercise Times/wk: Walking outside daily Hx of Depression and/or Anxiety/other mood disorder: Anxiety -mood stable Seat Belt Use: Routinely Smoking: Denies past/present Alcohol/day: Denies while Caffeine: No Drug Use: Denies past/present Chicken Pox: Yes as a child MRSA: Denies What is your current living situation?: I presently have a place to live Problems where you live: no known problems In the past 12 months, utilities in danger of being shut off: no In past 12 months, lack of transportation kept you from medical appts, meetings, work, or getting things needed for daily living: no In the past 12 mos, have been you worried that your food would run out before you had money to buy more?: never true In the past 12 mos, the food you bought just didn't last and you didn't have money to buy more?: never true Smoking Status: Never smoker How often do you have a drink containing alcohol: never AUDIT-C Alcohol total score: 0 Non-prescribed substance use: denies use How often does anyone, including family, friends and others, physically hurt you : never How often does anyone, including family, friends and others, insult or talk down to you: never How often does anyone, including family, friends and others, threaten you with harm: never How often does anyone, including family, friends and others, scream or curse at you: never Little interest or pleasure in doing things: not at all Feeling down, depressed, or hopeless: not at all Meds Home Medications and Allergies Home Medications ?Medication ?Instructions ?Recorded ?Confirmed ?Type prenat.vits,lukas,smb-lobc-ptfag 1 tab PO QDAY 09/26/22 05/28/24 History Allergies Allergy/AdvReac Type Severity Reaction Status Date / Time ciprofloxacin Allergy Severe Swelling Verified 05/28/24 12:50 of Lip/Tongue/Throat Results Labs Labs: Laboratory Results - last 24 hr 05/29/24 11:01 WBC 10.05 RBC 3.63 L Hgb 11.6 L Hct 34.9 MCV 96 MCH 32 MCHC 33 RDW Coeff of Delmar 12.7 Plt Count 132 L Neut % (Auto) 75.6 H Lymph % (Auto) 16.6 L Crisp % (Auto) 5.5 Eos % (Auto) 1.3 Baso % (Auto) 0.4 Neut # (Auto) 7.60 H Lymph # (Auto) 1.70 Crisp # (Auto) 0.60 Eos # (Auto) 0.13 Baso # (Auto) 0.04 Abs Immat Gran (auto) 0.06 Imm/Tot Granulo (auto) 0.6 Vital Signs Vital Signs: Last Vital Signs Pulse 80 05/29/24 12:06 BP 106/66 05/29/24 12:06 Pulse Ox 98 05/29/24 11:56 Weight: 98.384 kg Height: 165.1 cm Anesthesia Procedures Epidural Insertion Patient Location: OB Start Time: 11:40 Stop Time: 12:15 Start Date: 05/29/24 Stop Date: 05/29/24 Reason for Block: primary anesthetic Patient Position: sitting Performed By: David Gaston Preanesthetic Checklist: IV checked, risks and benefits discussed, surgical consent, monitors and equipment checked, pre-op evaluation, timeout performed and anesthesia consent Prep: chlorhexidine gluconate Monitoring: blood pressure monitoring, cardiac surgeon, continuous pulse oximetry and heart rate Approach: midline Vertebral Space: lumbar (1-5) Needle Type: Tuohy needle Injection Technique: continuous catheter (catheter) Needle gauge: 17 Needle Length (cm): 10 cm Needle Insertion Depth (cm): 5 Catheter Gauge: 19 Catheter Type: multi-orifice Catheter at skin depth (cm): 10 Test Dose Result: negative and lidocaine 1.5% with epinephrine 1 to 200,000
[2024-05-29] MEDS: OXYTOCIN 30 unit/500 ML in NS 30 UNIT/500 ML BAG 300 UNIT IVPB (16:42)
--- NOTE | 2024-05-29 17:02 | W.PM.OBVAGDE ---
OB Procedure Vag Delivery Mother Details Mother Details: The patient is a 33 year-old, 2, Para 1, admitted on 05/29/24 at 40 2/7 weeks gestation. Patient arrived to labor and delivery experiencing painful and regular contractions, she was found 7cm dilated and admitted in labor for delivery. Epidural was placed for pain management, and contractions spaced out for a while, recommendation was given for AROM and after this progressed normally and pushed effectively. : 2 Para: 2 Weeks Gestation: 40.2 Admission Date: 05/29/24 Additional Details Amniotic Membrane Status: AROM Amniotic Membrane Rupture Date: 05/29/24 Amniotic Membrane Rupture Time: 13:49 Amniotic Membrane Fluid Description: Clear Analgesia/Anesthesia Type: Epidural Waterbirth: No Pitcoin: No Intrapartal Events: Labor Augmentation Delivery augmentation: rupture of membranes Labor Onset: 01:00 Complete: 15:35 Pushin:50 Heart: heart tones during second stage were category 2. Deep early/variable decelerations when patient was found complete and +2 station. Pushing effectively with progressive descent noted and heart rate accelerations with scalp stimulation. Delivery Details Delivery Date: 05/29/24 Delivery Time: 16:41 Route of delivery: Infant Gender: Male Infant Viability: Alive; Heart Rate Present Position at Delivery: OA Delivery Details: Delivered over intact perineum via spontaneous vaginal delivery. Infant was placed on maternal abdomen.? Cord was clamped and cut after a 30-60 second delay. Nose and mouth were bulb suctioned.? Infant weight pending. 1 Minute Interval Total Score: 8 5 Minute Interval Total Score: 9 Additional Details Shoulder Dystocia: No Placenta Delivery Time: 16:50 Placental Delivery Description: Spontaneous Delivery repair: Vicryl Procedure Done: Global Blood Loss: 334 Laceration: Perineal - 2nd Degree Blood Loss Measurement Type: QBL Bakri Used: No Sponge/Need Count Correct: Yes Cord Vessel Description: 3 Vessels Event Summary Status: Mother and were stable after delivery. Disposition: floor
[2024-05-29] MEDS: IBUPROFEN 600 MG TABLET PO (19:45)
[2024-05-30] MEDS: ACETAMINOPHEN 500 MG TABLET 1000 MG PO (01:23)
[2024-05-30] MEDS: IBUPROFEN 600 MG TABLET PO ×3 (04:14→16:17)
[2024-05-30 04:24] VITALS: BP 118/72; PULSE 74; RESP 16; TEMP 36.3; O2SAT 98
[2024-05-30] MEDS: LANOLIN CREAM 1 APPLIC TOPICAL (04:27)
[2024-05-30 06:37] LABS: Hemoglobin* 10.5 gm/dL (12.0-16.0)
--- NOTE | 2024-05-30 08:03 | PM.OBDSVD1 ---
DS: Providers Provider Date Seen: 05/30/24 Date of admission: 05/29/24 11:00 Primary care physician: Not a Local Provider Admitting Clinician: Mei Beaver MD Attending Physician on discharge: Eva Hinson CNM DS: Diagnosis Discharge Diagnosis (1) care and examination immediately after delivery: Status: Acute (2) Lactating mother: Status: Acute Exam Narrative: Exam Narrative: GENERAL APPEARANCE:? normal affect, alert, no distress MOOD:? appropriate CHEST:? clear to auscultation HEART:? regular rate and rhythm ABDOMEN:? soft, non-tender the uterine fundus is At Umbilicus, Midline and is appropriate for the stage of recovery. PERINEUM:? mild edema of the perineum, there is a Perineal Laceration,?2nd degree, that is healing well. EXTREMITIES:? normal and no edema Const: Vital Signs, click to edit/add: Vital Signs - 24 hr 05/29/24 10:29 05/29/24 11:45 05/29/24 11:46 Temperature Pulse Rate 82 Pulse Rate [Pulse Oximeter] Respiratory Rate Blood Pressure 131/82 Blood Pressure [Le ft Arm] Pulse Oximetry 99 81 L [address] thod 05/29/24 11:50 05/29/24 11:51 05/29/24 11:52 Temperature Pulse Rate 88 92 Pulse Rate [Pulse Oximeter] Respiratory Rate Blood Pressure 121/82 124/82 Blood Pressure [Le ft Arm] Pulse Oximetry [address] thod 05/29/24 11:54 05/29/24 11:56 05/29/24 11:58 Temperature Pulse Rate 90 83 88 Pulse Rate [Pulse Oximeter] Respiratory Rate Blood Pressure 114/75 115/81 116/78 Blood Pressure [Le ft Arm] Pulse Oximetry [address] thod 05/29/24 12:00 05/29/24 12:02 05/29/24 12:04 Temperature Pulse Rate 80 85 89 Pulse Rate [Pulse Oximeter] Respiratory Rate Blood Pressure 118/77 116/70 114/67 Blood Pressure [Le ft Arm] Pulse Oximetry Oxygen Delivery Ct thod 05/29/24 12:06 05/29/24 12:08 05/29/24 12:10 Temperature Pulse Rate 80 90 83 Pulse Rate [Pulse Oximeter] Respiratory Rate Blood Pressure 106/66 111/70 111/70 Blood Pressure [Le ft Arm] [facility] 12:12 05/29/24 12:14 05/29/24 12:16 Temperature Pulse Rate 81 78 83 Pulse Rate [Pulse Oximeter] Respiratory Rate Blood Pressure 112/73 109/58 L 109/60 Blood Pressure [Le ft Arm] Pulse Oximetry [facility] 12:18 05/29/24 12:20 05/29/24 12:22 Temperature Pulse Rate 90 80 76 Pulse Rate [Pulse Oximeter] Respiratory Rate Blood Pressure 104/61 108/68 105/68 Blood Pressure [Le ft Arm] Pulse Oximetry [facility] 12:24 05/29/24 12:26 05/29/24 12:28 Temperature Pulse Rate 82 101 H 90 Pulse Rate [Pulse Oximeter] Respiratory Rate Blood Pressure 102/65 100/67 104/69 Blood Pressure [Le ft Arm] Pulse Oximetry [facility] 05/[facility] 12:30 05/29/24 12:32 05/29/24 12:51 Temperature Pulse Rate 94 75 85 Pulse Rate [Pulse Oximeter] Respiratory Rate Blood Pressure 105/63 109/73 104/57 L Blood Pressure [Le ft Arm] Pulse Oximetry [facility] 05/[facility] 13:06 05/29/24 13:20 05/29/24 13:35 Temperature Pulse Rate 77 74 84 Pulse Rate [Pulse Oximeter] Respiratory Rate Blood Pressure 114/58 L 114/55 L 129/72 Blood Pressure [Le ft Arm] Pulse Oximetry [facility] 05[facility]29/24 13:49 05/29/24 14:00 05/29/24 14:05 Temperature 98.1 F Pulse Rate 75 71 Pulse Rate [Pulse Oximeter] Respiratory Rate Blood Pressure 132/76 123/79 Blood Pressure [Le ft Arm] Pulse Oximetry [facility] 05/[facility]/24 14:20 05/29/24 14:36 05/29/24 14:50 Temperature Pulse Rate 67 74 71 Pulse Rate [Pulse Oximeter] Respiratory Rate Blood Pressure 112/75 111/75 110/73 Blood Pressure [Le ft Arm] Pulse Oximetry [facility] 05/29/24 15:06 05/29/24 15:21 05/29/24 15:21 Temperature 97.3 F L Pulse Rate 85 67 Pulse Rate [Pulse Oximeter] Respiratory Rate Blood Pressure 125/83 108/68 Blood Pressure [Le ft Arm] Pulse Oximetry Oxygen Delivery [facility] 05/29/24 15:35 05/29/24 15:51 05/29/24 16:07 Temperature Pulse Rate 73 85 107 H Pulse Rate [Pulse Oximeter] Respiratory Rate Blood Pressure 110/72 103/58 L 111/77 Blood Pressure [Le ft Arm] Pulse Oximetry Oxygen Delivery [facility] 05/29/24 16:13 05/29/24 16:14 05/29/24 16:18 Temperature Pulse Rate Pulse Rate [Pulse Oximeter] Respiratory Rate Blood Pressure Blood Pressure [Le ft Arm] Pulse Oximetry 98 89 100 Oxygen Delivery [facility] 05/29/24 16:20 05/29/24 16:23 05/29/24 16:25 Temperature Pulse Rate 118 H Pulse Rate [Pulse Oximeter] Respiratory Rate Blood Pressure 109/58 L Blood Pressure [Le ft Arm] Pulse Oximetry 92 100 91 Oxygen Delivery [facility] 05/29/24 16:28 05/29/24 16:32 05/29/24 16:33 Temperature Pulse Rate Pulse Rate [Pulse Oximeter] Respiratory Rate Blood Pressure Blood Pressure [Le ft Arm] Pulse Oximetry 100 83 L 85 L Oxygen Delivery [facility] 05/29/24 16:34 05/29/24 16:38 05/29/24 16:47 Temperature 98.3 F Pulse Rate 103 H Pulse Rate [Pulse Oximeter] Respiratory Rate Blood Pressure 106/61 Blood Pressure [Le ft Arm] Pulse Oximetry 99 Oxygen Delivery [facility] 05/29/24 16:50 05/29/24 17:04 05/29/24 17:19 Temperature Pulse Rate 81 81 82 Pulse Rate [Pulse Oximeter] Respiratory Rate Blood Pressure 123/66 131/64 124/65 Blood Pressure [Le ft Arm] Pulse Oximetry [facility] 05/[facility]/24 17:34 05/29/24 17:49 05/29/24 18:04 Temperature Pulse Rate 80 75 78 Pulse Rate [Pulse Oximeter] Respiratory Rate Blood Pressure 123/70 121/68 125/70 Blood Pressure [Le ft Arm] Pulse Oximetry Oxygen Delivery [facility] 05/29/24 18:19 05/29/24 18:34 05/29/24 18:49 Temperature Pulse Rate 75 82 73 Pulse Rate [Pulse Oximeter] Respiratory Rate Blood Pressure 118/74 124/77 118/72 Blood Pressure [Le ft Arm] Pulse Oximetry Oxygen Delivery Me thod 05/29/24 22:25 05/30/24 04:24 Temperature 98.1 F 97.4 F L Pulse Rate Pulse Rate [Pulse Oximeter] 83 74 Respiratory Rate 16 16 Blood Pressure Blood Pressure [Le ft Arm] 122/84 118/72 Pulse Oximetry 96 98 Oxygen Delivery Me thod Room Air Room Air OB - DS: Summary Hospital Course Hospital Course: Alla is a 33 y.o. G 2 P 2 who was admitted to [facility] for spontaneous onset of labor. ?She had a NVD that was uncomplicated. The patient feels well. ?The pain is well controlled with current medications. ?She has no new complaints. ?She is breast feeding and reports things are going well. the patient has done well.? Vitals have been stable.? She has remained afebrile.? Has a good appetite, is tolerating a general diet. ?She is voiding without difficulty.? She is passing gas and has not had a bowel movement.? She is ambulating and denies any dizziness.? Has small amount of rubra lochia. She is planning condoms for prevention. Problems: none plan: Discharge home with baby. Follow up in 2 weeks and 6 weeks. , may see if needed Hgb 10.5. Iron supplement ordered orally every other day Peripartum Data Infant delivery method: Vaginal Laceration description: Perineal - 2nd Degree complications: none Gender: Male Discharge Plan: Home Status at Discharge Functional status at discharge: independent ambulation Overall status at discharge: patient is progressing back to baseline Time Spent with Patient Time attestation: Total time spent providing and/or coordinating discharge services: Discharge Plan Discharge Disposition: Home, Self-Care Date of Admission: 05/29/24 11:00 Attending Provider on Discharge: Eva Hinson Primary Care Provider: Provider,Not a Local Condition: Stable Anticipated Discharge Date/Time: 05/30/24 17:00 Discharge Medications: New docusate sodium 100 mg Capsule 100 mg PO DAILY Qty: 90 0RF ferrous sulfate 325 mg (65 mg iron) Tablet 325 mg PO Q OTHER DAY Qty: 60 0RF ibuprofen 600 mg Tablet 600 mg PO Q6H PRNQty: 60 0RF acetaminophen 500 mg Tablet 1,000 mg PO Q6H PRNQty: 0 0RF Continued prenat.vits,lukas,hue-xffm-foyfr Tablet 1 tab PO QDAY Discharge Orders: Discharge Order (Routine); Ordered 05/30/24 Ordered By: Eva Hinson Patient Education: OB Over the Counter Medication Information, OB Vaginal/Breast Feeding Additional Instructions: Discharge instructions were reviewed with the patient including signs and symptoms of infection and home going medications Nothing vaginally for 6 weeks: no tampons or intercourse Off Work or School for 6 weeks 2-week visit: discuss feeding concerns, review control options and screen for anxiety/depression. 6-week visit for an annual exam. consultation services are available to all mothers and babies for the first year after delivery.? To make an appointment, please call [phone]. Activity Level: Activity as Tolerated Discharge Diet: Regular Follow Up Appointments: [facility] [Provider Group] Forms: [facility], [employer] Info Instructions
[2024-05-30 10:10] VITALS: BP 117/77; PULSE 82; RESP 14; TEMP 36.8; O2SAT 97
--- NOTE | 2024-05-30 11:11 | PM.ANPOST ---
Post Anesthesia Note Post Anesthesia Note Patient seen: Inpatient Respiratory Status: adequate Cardiovascular Status: adequate Mental Status: baseline Pain: adequate Temp: baseline Anesthetic awareness: N/A Complications: none Follow care: none
[2024-05-30 12:01] VITALS: BP 122/79; PULSE 74; RESP 18; TEMP 36.5; O2SAT 97
--- NOTE | 2024-05-30 15:11 | PC.NURSE ---
Nursing Care Hours: [id number] Pt this shift calm and cooperative, alert and oriented. Pain 11/24, pt declined any ice at this time. Fundus 2-3 finger breaths below umbilicus.
[2024-05-30 16:07] VITALS: BP 108/77; PULSE 68; RESP 16; TEMP 37.1; O2SAT 94
[2024-05-30] MEDS: FERROUS SULFATE 325 MG TABLET PO (16:18)
[2024-05-30] MEDS: DOCUSATE SODIUM 100 MG CAPSULE PO (16:18)
[2024-05-31 01:41] LABS: Rapid Plasma Reagin (RPR) Non Reactive (Non Reactive)
== END 2024-05-30 19:55 | disposition home or self-care (01) | DRG 807 ==
LOC: OB OUT 11:01 → OB 11:01
PROVIDERS: Admitting Provider Obstetrics & Gynecology; Visit Provider Obstetrics & Gynecology
DX: O70.1 Second degree perineal laceration during delivery (principal); Z37.0 Single live birth; O76 Abnormality in fetal heart rate and rhythm complicating labor and delivery; Z3A.40 40 weeks gestation of pregnancy; Z15.89 Genetic susceptibility to other disease; Z82.0 Family history of epilepsy and other diseases of the nervous system
CPT/HCPCS: 01967; 36415; 85018; 85025; 86592; A9270; J2371; J2795; J7120

== ENCOUNTER 2024-06-04 08:38 | Outpatient (CLI) | payer OTHER, SELFPAY ==
--- OUTSIDE RECORDS SUMMARY | 2024-06-04 08:41 | XMS_ITS | Clinical Summary ---
Author Organization [employer] [facility] Address [place], [place] [address] Care Team Providers Care Dewaxer Name Role Phone Gorge Oliveros DO Primary Care Provider [phone] Allergies Active Allergy Reactions Criticality Noted Date [...] Name Administration Dates Next Due COVID-19 vaccine (Q [employer]Bio NTech 30mcg/0.3mL) PFMDV 09/30/2021,12/25/2020,12/04/2020 DTP 02/09/1998, 4,08/08/1993,04/26,02/25/1993 [...] Body Mass Index 28.09 09/30/2021 12:54 PM HOT WIRE GLASS TUBE CUTTER Plan of Treatment Health Maintenance Due Date [...] Procedure Name Priority Date/Time Associated Diagnosis Comments PROFESSIONAL BUILDER THIN PREP PAP SCREEN IMAGED Routine 09/30/2021 1:36 PM HOT WIRE GLASS TUBE CUTTER Screening for cervical cancer from Last 3 Months or Most Recently Relevant to Health Maintenance Results * PROFESSIONAL BUILDER THIN PREP PAP SCREEN IMAGED [[id number]] (09/30/2021 1:36 PM HOT WIRE GLASS TUBE CUTTER) Case Report Gynecologic Cytology Report ? Case: [id number] ? Authorizing Provider: ??Marianne Oliveros, DO ? Collected: ? 09/30/2021 1336 ? Ordering Location: ? [facility] ?? Received: ?09/30/2021 1357 ? Clinic ? First Screen: ?David Urbano ? Specimen: ?PROFESSIONAL BUILDER ThinPrep Vial Screening, Cervical ? 10/07/2021 1:17 PM HOT WIRE GLASS TUBE CUTTER [facility] INTERPRETATION/ RESULT NEGATIVE FOR INTRAEPITHELIAL LESION OR MALIGNANCY (NIL) (none) 10/07/2021 1:17 PM HOT WIRE GLASS TUBE CUTTER [facility] IMEN ADEQUACY Satisfactory for evaluation Endocervical component present 10/07/2021 1:17 PM HOT WIRE GLASS TUBE CUTTER [facility] HPV REQUEST HPV if ASCUS 10/07/2021 1:17 PM HOT WIRE GLASS TUBE CUTTER [facility] Date of LMP 09/05/2021 10/07/2021 1:17 PM HOT WIRE GLASS TUBE CUTTER [facility] Last Pap Date 08/23/17 10/07/2021 1:17 PM HOT WIRE GLASS TUBE CUTTER [facility] Last Pap Result NIL 1:17 PM HOT WIRE GLASS TUBE CUTTER [facility] Abnormal Pap or [place] Bx in last 5 years No 10/07/2021 1:17 PM HOT WIRE GLASS TUBE CUTTER [facility] Menstrual Status Regular Periods 10/07/2021 1:17 PM HOT WIRE GLASS TUBE CUTTER [facility] [place] Bx Done Today No 10/07/2021 1:17 PM HOT WIRE GLASS TUBE CUTTER [facility] Additional Information None given 10/07/2021 1:17 PM HOT WIRE GLASS TUBE CUTTER [facility] Comment: Cytology is screened at [facility], Central Laboratory - [address], [place] [address] and [facility] - [address] [place] [address] [address] [facility] - [address] [place] [address] Interpreted at [facility] Laboratory - [address], [place] [address] Automated Review Successful 10/07/2021 1:17 PM HOT WIRE GLASS TUBE CUTTER [facility] Comment:Specimen processed s uccessfully by automated pearl technician device, ThinPrep Imaging System, [employer] Note The pap test is a screening technique, not a diagnostic procedure. It is used primarily to screen for squamous cancers and precursor lesions. Published studies have shown that it is subject to both false negative and false positive results. The pap test should not be used as the sole means to diagnose or exclude pre-malignant and malignant lesions. 10/07/2021 1:17 PM HOT WIRE GLASS TUBE CUTTER [facility] Other (Cervical) Non-Blood / Unknown 09/30/2021 1:36 PM HOT WIRE GLASS TUBE CUTTER 09/30/2021 1:57 PM HOT WIRE GLASS TUBE CUTTER Marianne Oliveros DO PATHOLOGY/CYTOLOGY [employer] [facility] [address] [place] [address], from Last 3 Months or Most Recently Relevant to Health Maintenance Care Teams Dewaxer Relationship Specialty Start Date End Date Gorge Oliveros DO [address] [place] [address] PCP - General Family Practice 11/28/21
--- NOTE | 2024-06-04 15:36 | P.LACCB_ITS ---
Consult Note - Mom Date of Visit Date of visit: 06/04/24 sec reporting consultant: Nikki Manning Visit Code: Visit Patient's Information Phone number: [phone] : 2 Para: 2 Allergies ciprofloxacin Allergy (Severe, Verified 05/28/24 12:50) Swelling of Lip/Tongue/Throat Mother's Medical History: Medical History (Updated 05/30/24 @ 08:04 by Eva Hinson CNM) Evaluate anatomy not seen on prior sonogram Anemia ?D64.9 - Anemia, unspecified (ICD-10) Third degree laceration of perineum during delivery, ?O70.20 - Third degree perineal laceration during delivery, unspecified (ICD- 10) IBS (irritable bowel syndrome) ?K58.9 - Irritable bowel syndrome without diarrhea (ICD-10) Anxiety ?F41.9 - Anxiety disorder, unspecified (ICD-10) Delivery Information Delivery type: Vaginal Weeks Gestation: 40+2 Gestational Age: AGA Weight: 4.21 kg Discharge Weight: 4.002 kg (down 5% at discharge) Baby's Information Baby's Age at Visit: 6 days Baby's Provider or Clinic: [facility] Reason for Consult Reason for Consult: latching difficulty; second baby but first time . First baby wouldn't latch at all, mom tried pumping and bottling but 2.5 months but never developed a good supply. Beau is not latching great and hasn't latched for 4 days now. Past Experience Past Experience: No Current Frequency of Day Feedings: every 2-3 hours Frequency of Night Feedings: every 2-3 hours Suck: difficult getting him on, pops on and off Length of Time: 5 min ea side if he does get latched well Pumping Pumping: Yes Quantity Pumped: 3-4 oz total between both breasts Supplementing EMB Supplement: Yes Formula Supplement: No Baby Elimination Number of Wet Diapers a Day: 6 or more Number of BM a Day: 5-6/day, stools are yellow, seedy Breast/Nipple Condition Breast Information: Breasts are symmetrical with rounded lower quadrants, intramammary distance is less than 1.5 inches. No erythema. Nipples are supple, everted prior to feeding. Engorgement: No Maternal Nipple Condition - Left: Short Maternal Nipple Condition - Right: Short Sore Nipples: Yes Interventions for Sore Nipples: Lansinoh (nipple cream) Onsite Pre-Feed weight: 4.004 kg Post-Feed weight: 4.058 kg Milk Transferred (mL): 54 Pre-Nursing Left Nipple: Within Normal Limits Pre-Nursing Right Nipple: Within Normal Limits Post-Nursing Left Nipple: Within Normal Limits Post-Nursing Right Nipple: Within Normal Limits Assessments/Interventions Assessments/Interventions: Worked with mom/taught asymmetrical latch technique with the breast sandwich for a wide, deep latch and mom reports increased comfort with this. Mom's left nipple slightly shorter than right nipple and estiven has harder time getting latched to this side. Switch him to right side and eagerly gets on breast and nurses well and audible swallows. Discussed breast sandwich in different positions, breast compression to aid in milk flow to get him going. also discussed use of nipple shield on left side may assist him getting going and then can work on weaning him off shield. Estiven not interested in nursing on left side after taking 54 ml on right side. Discussed normals of ; milk coming in, regulation of supply, use of pump to relieve fullness if needed, but not to pump every feeding if not needed to prevent over supply. Measured for flange side if needing to pump: Right nipple 17mm, so flange size 20-21mm Left nipple 16mm, so flange size 19-20mm; can go up or down 1mm in size for comfort; pumping should be comfortable. Nipple care reviewed as well for healing. Mom to call with questions/concerns. Time spent reviewing EMR and face to face with mom, and baby: 70 minutes. Meds Home Medications and Allergies Home Medications ?Medication ?Instructions ?Recorded ?Confirmed ?Type prenat.vits,lukas,xrh-worh-plelz 1 tab PO QDAY 09/26/22 05/29/24 History Allergies Allergy/AdvReac Type Severity Reaction Status Date / Time ciprofloxacin Allergy Severe Swelling Verified 05/28/24 12:50 of Lip/Tongue/Throat
== END 2024-06-04 08:39 | disposition home or self-care (01) ==
LOC: OB LAC 08:38
PROVIDERS: Visit Provider Obstetrics & Gynecology
DX: Z39.1 Encounter for care and examination of lactating mother (principal)
CPT/HCPCS: G0463

== ENCOUNTER 2024-07-10 09:45 | Outpatient (CLI) | payer OTHER, SELFPAY ==
--- OUTSIDE RECORDS SUMMARY | 2024-07-10 10:05 | XMS_ITS | Clinical Summary ---
Author Organization [email or web address] [facility] Address [place], [place] [address] Care Team Providers Care Technical Sales Advisor Name Role Phone Gorge Oliveros DO Primary Care Provider [phone] Allergies Active Allergy Reactions Criticality Noted Date [...] Name Administration Dates Next Due COVID-19 vaccine ([employer] NTech 30mcg/0.3mL) PFMDV 09/30/2021,12/25/2020,12/04/2020 DTP 02/09/1998, 4,08/08/1993,04/26,02/25/1993 [...] Body Mass Index 28.09 09/30/2021 12:54 PM OPERATING ROOM MANAGER Plan of Treatment Health Maintenance Due [...] Procedure Name Priority Date/Time Associated Diagnosis Comments TOUCHER UP THIN PREP PAP SCREEN IMAGED Routine 09/30/2021 1:36 PM OPERATING ROOM MANAGER Screening for cervical cancer from Last 3 Months or Most Recently Relevant to Health Maintenance Results * TOUCHER UP THIN PREP PAP SCREEN IMAGED [[id number]] (09/30/2021 1:36 PM OPERATING ROOM MANAGER) Case Report Gynecologic Cytology Report ? Case: [id number] ? Authorizing Provider: ??Marianne Oliveros, DO ? Collected: ? 09/30/2021 1336 ? Ordering Location: ? [facility] ?? Received: ?09/30/2021 1357 ? Clinic ? First Screen: ?David Urbano ? Specimen: ?TOUCHER UP ThinPrep Vial Screening, Cervical ? 10/07/2021 1:17 PM OPERATING ROOM MANAGER [facility] INTERPRETATION/ RESULT NEGATIVE FOR INTRAEPITHELIAL LESION OR MALIGNANCY (NIL) (none) 10/07/2021 1:17 PM OPERATING ROOM MANAGER [facility] IMEN ADEQUACY Satisfactory for evaluation Endocervical component present 10/07/2021 1:17 PM OPERATING ROOM MANAGER [facility] HPV REQUEST HPV if ASCUS 10/07/2021 1:17 PM OPERATING ROOM MANAGER [facility] Date of LMP 09/05/2021 10/07/2021 1:17 PM OPERATING ROOM MANAGER [facility] Last Pap Date 08/23/17 10/07/2021 1:17 PM OPERATING ROOM MANAGER [facility] Last Pap Result NIL 1:17 PM OPERATING ROOM MANAGER [facility] Abnormal Pap or [place] Bx in last 5 years No 10/07/2021 1:17 PM OPERATING ROOM MANAGER [facility] Menstrual Status Regular Periods 10/07/2021 1:17 PM OPERATING ROOM MANAGER [facility] [place] Bx Done Today No 10/07/2021 1:17 PM OPERATING ROOM MANAGER [facility] Additional Information None given 10/07/2021 1:17 PM OPERATING ROOM MANAGER [facility] Comment: Cytology is screened at [facility], Central Laboratory - [address], [place] [address] and [facility] - [address] [place] [address] and [facility] - [address] [place] [address] Interpreted at [facility] Laboratory - [address], [place] [address] Automated Review Successful 10/07/2021 1:17 PM OPERATING ROOM MANAGER [facility] Comment:Specimen processed s uccessfully by automated junior sales assistant device, ThinPrep Imaging System, [employer] Note The pap test is a screening technique, not a diagnostic procedure. It is used primarily to screen for squamous cancers and precursor lesions. Published studies have shown that it is subject to both false negative and false positive results. The pap test should not be used as the sole means to diagnose or exclude pre-malignant and malignant lesions. 10/07/2021 1:17 PM OPERATING ROOM MANAGER [facility] Other (Cervical) Non-Blood / Unknown 09/30/2021 1:36 PM OPERATING ROOM MANAGER 09/30/2021 1:57 PM OPERATING ROOM MANAGER Marianne Oliveros DO PATHOLOGY/CYTOLOGY [employer] [facility] [address] [place] [address], from Last 3 Months or Most Recently Relevant to Health Maintenance Care Teams Technical Sales Advisor Relationship Specialty Start Date End Date Gorge Oliveros DO [address] [place] [address] PCP - General Family Practice 11/28/21
[2024-07-12 05:34] LABS: HPV Source Cervix; HPV, High Risk by TMA Not Detected
== END 2024-07-10 09:46 | disposition home or self-care (01) ==
PROVIDERS: Visit Provider Physician Assistant
DX: Z12.4 Encounter for screening for malignant neoplasm of cervix (principal); Z39.2 Encounter for routine postpartum follow-up
CPT/HCPCS: 87624; 87625; 88141; 88142

== ENCOUNTER 2024-12-01 12:27 | Outpatient (CLI) | payer OTHER, SELFPAY | END 2024-12-01 12:28 | disposition home or self-care (01) | LOC: NFLDREF 12:28 | PROVIDERS: PCP Registered Nurse; Visit Provider Registered Nurse | DX: Z13.220 Encounter for screening for lipoid disorders (principal) | CPT/HCPCS: 80061 ==

== ENCOUNTER 2025-04-07 12:00 | Outpatient (RCR) | payer OTHER, SELFPAY ==
--- NOTE | 2024-12-05 12:58 | PT.OPDN ---
PT [facility] Daily Note PT [facility] Daily Note Start: 12/04/24 10:21 Freq: Status: Active Protocol: Document 12/05/24 07:31 ARR (Rec: 12/05/24 12:58 ARR [email or web address]) E-signed By Amy Mcfarlane DPT PT OP Daily Progress Note Visit Information Note Type Daily Note,Re-Evaluation Visit Number 2 Insurance Authorized Visits TBD Physician Authorized Visits eval & treat Insurance Information Insurance Name [facility] Medical Diagnosis M53.3 sacrococcygeal disorders Treating Diagnosis K59.00 Constipation, unspecified M51.26 lumbar disc displacement R10.2 Pelvic and perineal pain M53.3 Coccygodynia Referring MD Pretty Rojas, METAL PICKLING EQUIPMENT OPERATOR Subjective Subjective -Subjective: Location of pain right on tailbone butt gets sore because it feels tense. Gradual onset of symptoms. 19 months and 6 month old. Noting history hemorrhoids as well onset after 1st . Increases in pain with straightening legs and bending forward when sitting, sitting in general. Decreases in pain : laying on back, sometimes standing can feel better. Also feels pulling Into abdominal area lower area ? not daily, maybe 3-4 days out of the week. Notes she did hurt her back in 1st and caused some tailbone pain. Happened again in 2nd as well but not as bad. Not nursing -Urinary: A little leakage with sneezing, coughing, jumping, laughing. --Protection worn: no --Severity of leakage: damp underwear --Activity that causes leakage : see above --Delay of urination: yes --Urinary urgency (any incontinence):no --Strain to start or stop urine stream: straining a little to empty fully --Hydration: 120 oz water --Daytime urination: no idea, maybe 8-10x --Nocturia: 0-1x --Dysuria: no --Pressure/heaviness: no --Triggers: no -Bowel: BM ~2x/week. Constipation likely chronic, feels a little of IBS going on . --Frequency:see above --[place] chart: type 1-2 --Constipation: yes --Do you feel bowels fully evacuate with BM: no --Fecal leakage: no --Fecal urgency: no --Straining with BM: no --Pain with BM: no. Sometimes will get a shooting pain in the anal area as --Do you use pressure with hands to assist with BM: --Flatus incontinence: no --Abdominal/rectal pain or symptoms: see --Do you take bowel supplements: occasional MiraLAX --Food impact: notes that having dairy or cheese with cramping --Fiber intake: unsure -Sexual: no pain -Menstrual history: Cycles have returned and are regular -: G/P 2/2, vaginal --Length of labor/pushinst one was long 4 hours of pushing. 2nd baby 45 minutes --Forceps or vacuum: no --Tearing or episiotomy: 3rd degree tear with first baby in delivery. 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 Does have h/o LBP in the winter, no tailbone pain. -Current exercise: none. Can?t do it due to back and glut, hip pain. Would like to go back to weight training -Orthopedic issues: low back and upper glut area. -Goals: get rid of tailbone pain, more mobility Pain Comments 5/10 worst 2/10 best Date of Last Physician Visit 12/01/24 Precautions Weight Bearing Status Full Weight Bearing Home Exercise Home Exercise Comments Access Code: [email or web address] URL: [email or web address] Date: 12/05/2024 Prepared by: Amy Mcfarlane Exercises - Prone Press Up - 2 x daily - 5-7 x weekly - 2 sets - 8-10 reps - mobility exercise type - Nerve Slider - 2 x daily - 5-7 x weekly - 2 sets - 8-10 reps - mobility exercise type - Supine Piriformis Stretch - 1 x daily - 5-7 x weekly - 2- 3 reps - 30-45 hold - strength mobility exercise type Objective Other/Pertinent Objective Re-evaluation: EXTERNAL OBJECTIVE 12/05/24: -Movement screen: LS flexion fingertips to knees with inc?d LBP and tailbone pain. LS extension 50% reduced mobility with reduction in LBP and tailbone. MS rotation WNL. -SLS: able to hold 30 sec. mild pelvic drop no increases in pain. -Posture: dec?d LS lordosis. Level IC.. -Hip PROM: IR 40 R / 30 L. ER 70 L / 80 R. -Strength: glut medius Other Tests: -Coordination: poor TA gripping with abs down into lower belly -Breathing: dec?d posterior and lateral ribcage mvmt with inhalation -Myofascial palpation: Decreased connective tissue mobility with skin rolling at XXX areas -DR: NT Special tests: -Hip: JOVAN -Flexibility: + piriformis on R, + HS bilat -Other: SLR pos on R 40 inc?d with ankle DF in tailbone. Pos on L at 60* for tailbone pain . -Other: rib angle 90* -Palpation: no TTP into abdominal wall. No trigger points. Patient Instructed in Risks/Benefits Yes Therapeutic Exercise Therapeutic Exercise Minutes (minutes) 30 Therapeutic Exercise: To Restore TE: Indicated for improvement Functional Status in strengthening and mobility. -Handouts with written instructions and photographs of exercises were issued to the patient for exercises to be included in HEP. Answered patient questions regarding POC, and mobility/stretches to perform if pain occurs -Prone press ups pillow under hips 2 x 8 reps -Supine N floss ea side x 10 reps -Piriformis stretch 2 x 30 sec -Child's pose breathing - inc' d pain -Cat/cow - inc'd tailbone pain Other Interventions Provided Other Interventions Provided Re-evaluation see above for details Other Interventions Untimed Minutes 30 Treatment Minutes Untimed Code Treatment Minutes 30 Timed Code Treatment Minutes 30 Total Treatment Time 60 Billing Units Therapeutic Exercise Units 2 Re-Evaluation Units 1 Assessment/Impression Assessment/Impression Pt is a 33 y/o female who presents with concerns of low back and tailbone pain with longstanding history of constipation. Signs and symptoms likely indicating / consistent with discogenic referral from Lumbar spine as concordant sign was reproduced with SLR (greater response on R vs L) and lumbar flexion. Patient does appear to respond to extension based exercises noting reduced intensity of tailbone pain with ability to sit without pain at end of initial session. Will likely benefit from internal assessment to further assess underlying factors to constipation and to further assess PF contribution to tailbone pain. Patient also has notable objective findings including bilateral glut weakness, piriformis tightness R>L and TA inhibition also likely contributing to the problem. Patient is a good candidate for skilled therapy to target deficits described above. Skilled PT intervention is necessary for use of therapeutic exercise manual therapy, neuromuscular re- education, gait training, and therapeutic activity. Functional impairments include difficulty with: sitting, walking. See appropriate sections of PT eval for complete list of goals and POC . D/C plan and criteria is for pt to achieve the goals as listed below or until max rehab potential is met. Pt was agreeable with plan of care and goals established. Re- evaluation was warranted to reassess symptoms due to complexity of symptoms with referral likely coming from lumbar spine in addition to possible pelvic floor. Plan of Care Physical Therapy Goals STG (within 5 weeks) 1) Pt will initiate HEP without increased pain/ symptoms 2) Pt will report at least 40% improvement in pain/symptoms since start of PT for return to PLOF 3) Pt will progress to strengthening without onset of symptoms 4) Pt will report improved frequency of bowel movements at least 4x/wk bristol chart 2 -3 LTG (within 10 weeks) 1) Pt will be indep with HEP for rn long term care management of pain/symptoms 2) Pt will demonstrate negative SLR for reproduction of tailbone pain for improved ability to put on shoes at home. 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 4) Pt will report at least 80% improvement in pain/symptoms since start of PT for return to PLOF 5) Pt will report improved bowel movements with bristol chart type 3-4 with ability to empty without straining for improved bowel health Daily Plan of Care Change POC; See Comments Daily Plan of Care Comments -Review exercises -MT techniques for LS with mobilizations and press ups. Manual N flossing. COnsider FDN -Internal assessment as indicated
--- NOTE | 2025-03-24 12:19 | PT.OPDNX ---
PT [place] Outpatient Daily Note PT [facility] Out[facility] Daily Note Start: 12/23/24 11:38 Freq: Status: Active Protocol: Document 03/24/25 07:51 ARR (Rec: 03/24/25 12:19 ARR [id number]) E-signed By Amy Mcfarlane DPT PT OP Daily Progress Note Visit Information Note Type Daily Note,Recert/Progress Note Visit Number 10 Running Total Visit 11 Number Insurance Authorized TBD Visits Physician Authorized eval & treat Visits Insurance Information Insurance Name [employer] [facility] Insurance Eval: 12/04 - 03/24 - ? Information/Comments 11 visits / Medical Diagnosis M53.3 sacrococcygeal disorders Treating Diagnosis K59.00 Constipation, unspecified M51.26 lumbar disc displacement R10.2 Pelvic and perineal pain M53.3 Coccygodynia Referring MD Pretty Rojas, SIGN ERECTOR Subjective Subjective - Was doing really good when she was more consistent. Then stopped for 1-2 wks due to busy schedule - occurred during VB, occurs every time with overhand serving. Probably occurs also with jumping for spiking. - Has been really busy at work -Was walking, doing 20 min youtube, and PT exercises. Could do 5 days per week. Pain Comments 5/10 worst 2/10 best Date of Last 12/01/24 Physician Visit Precautions Weight Bearing Full Weight Bearing Status Home Exercise Home Exercise Other: Comments -Bladder handout 12/23 -Splinting 01/09 -Constipation 01/09 -How to defecate 01/09 Access Code: [email or web address] URL: [email or web address] Date: 12/05/2024 Prepared by: Amy Mcfarlane Access Code: [email or web address] URL: [email or web address] Date: 01/22/2025 Prepared by: Amy Mcfarlane Exercises - Sidelying Thoracic Rotation - 1 x daily - 5-7 x weekly - 6-8 reps - strength mobility exercise type - Sidelying 360 Breathing - 1 x daily - 5-7 x weekly - 6-8 reps - strength mobility exercise type - Segmental Cat Cow - 1 x daily - 5-7 x weekly - 4-6 reps Objective Other/Pertinent 03/24: TTP with inc'd tone layer 3 bilat PC and IC. PFC 2 Objective /5 with reduced squeeze. When cued able to achieve 3/5. Re-evaluation: EXTERNAL OBJECTIVE 12/05/24: -Movement screen: LS flexion fingertips to knees with inc?d LBP and tailbone pain. LS extension 50% reduced mobility with reduction in LBP and tailbone. MS rotation WNL. -SLS: able to hold 30 sec. mild pelvic drop no increases in pain. -Posture: dec?d LS lordosis. Level IC.. -Hip PROM: IR 40 R / 30 L. ER 70 L / 80 R. -Strength: glut medius Other Tests: -Coordination: poor TA gripping with abs down into lower belly -Breathing: dec?d posterior and lateral ribcage mvmt with inhalation -DR: NT Special tests: -Hip: JOVAN -Flexibility: + piriformis on R, + HS bilat -Other: SLR pos on R 40 inc?d with ankle DF in tailbone . Pos on L at 60* for tailbone pain. -Other: rib angle 90* -Palpation: no TTP into abdominal wall. No trigger points. INTERNAL EXAMINATION INTRAVAGINAL: EXTERNAL EXAM: -Sensation: intact to touch -Gaping: slight -Tension/scar: none -Skin integrity WNL -Perineum: lowered (convex) -Cough: bulge -Lifting contraction: visible lift anally, minimal clitoral nod -Bulge: bulge -Prolapse: anterior wall / posterior wall -Hemhorroids: healed VAGINAL INTERNAL EXAM 01/09/25: -Prolapse: see popq POPQ (performed pt hooklying with cue to ?bear down and hold breath as though having a BM? or ?bear down.? Bear down sustained 6-8 sec x 3 for first measure then 1-3 reps for subsequent measures. -GH: 4.5 -PB: 3.0 -LH (GH+PB): 7.5 -TVL: NT -C: NT -D:NT -Aa: -1.0 -Ba: -1.0 -Ap: 0 -Bp: 0 Tenderness/pain to palpation/tone: -Layer 3: puborectalis / pubococcygeus / iliococcygeus *Inc?d tone and TTP Strength ( R / C / L): -Power (MMT): 3 -Endurance: 5 -Reps: 2 Reduced squeeze of PFM Other: -Breathing examination: dec?d posterior and lateral ribcage mvmt with inhalation -Coordination: TA inhibition Patient Instructed Yes in Risks/Benefits Therapeutic Exercise Therapeutic Exercise 10 Minutes (minutes) Therapeutic Exercise TE: Indicated for improvement in strengthening and : To Restore mobility. Functional Status -Handouts with written instructions and photographs of exercises were issued to the patient for exercises to be included in HEP. Answered patient questions regarding POC, and mobility/stretches to perform if pain occurs -PFC assessment Neuromuscular Re-Ed Neuromuscular 43 Reeducation Minutes (minutes) Neuromuscular NMR: Indicated to facilitate improved muscle firing and Reeducation Comments postural awareness through the use of tactile cues. stopping the flow of urine VARIATIONS for coordinating PF: -Inserting a tampon (lubricated) - can sit on a toilet or lay on your back using a mirror to watch for the string pull up/in with a kegel. then relax -Using a mirror laying on your back watching the perineum (Area between vagina/anal opening) pulling away from the mirror when you kegel then relax coming back toward you when you relax the kegel. -Inserting a toy etc into vaginal canal and practice Squeezing around it -Inserting clean digit into vaginal canal - squeeze around -PFTA on exhale ball squeeze thighs x 6 reps -PFTA on exhale ball squeeze thighs focus on sensing PF relaxation with inhale x 6 reps -PFTA on exhale ball squeeze thighs focus on less TA effort to 3 vs max to improve PF connection x 4 reps -PFTA with block press sh OH flexion x 6 reps Transvaginal w/consent: -PFC 2x(6 x 5 holds) 1 min rest btw sets -TA on exhale ball squeeze thighs 2 x 5 reps -TA with block press sh OH flexion 2 x 5 reps - focus on prebrace abs first -TA bridge ball press x 4 reps. TA with hip adduction x 4 reps. Bridge PFTA no ball press x 4 reps *Focus on exhale bottom up without isolated PFC Treatment Minutes Timed Code Treatment 53 Minutes Total Treatment Time 53 Billing Units Neuromuscular 3 Reeducation Units Therapeutic Exercise 1 Units Assessment/Impression Assessment/ Pt had been seen for constipation, pelvic/perineal pain Impression for 11 visits from 12/04/24 to 02/23/25 during this episode of physical therapy. F Focus of therapy on hip/ spine ROM, deep breathing, PF lengthening, with progression to proximal coordination of PFTA and gluts. Treatment also included education optimizing bowel and bladder health for symptom reduction/mgmt. Interventions including ther exercise, manual therapy, self-care, neuromuscular re-education. Pt at this time has not yet met all short/long-term goals and is not independent with HEP. Continues to benefit from further skilled PT indicated at this time as she continues to have urinary leakage with activity. Pt to benefit from ongoing therapy at a frequency of 1x/wk x 8 visits. Pt showing improved coordination of PFTA overall with reduced cues needed Plan of Care Physical Therapy STG (within 5 weeks) Goals 1) Pt will initiate HEP without increased pain/symptoms 2) Pt will report at least 40% improvement in pain/ symptoms since start of PT for return to PLOF 3) Pt will progress to strengthening without onset of symptoms 4) Pt will report improved frequency of bowel movements at least 4x/wk bristol chart 2-3 LTG (within 10 weeks) 1) Pt will be indep with HEP for long-term management of pain/symptoms 2) Pt will demonstrate negative SLR for reproduction of tailbone pain for improved ability to put on shoes at home. 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 4) Pt will report at least 80% improvement in pain/ symptoms since start of PT for return to PLOF 5) Pt will report improved bowel movements with bristol chart type 3-4 with ability to empty without straining for improved bowel health Daily Plan of Care Change POC; See Comments Daily Plan of Care -TA coordination continue to progress more. Add in glut Comments strengthening -Sidelying plank, seated PFTA band pull apart or bilat sh ER
== END 2025-07-22 08:14 | disposition home or self-care (01) ==
PROVIDERS: PCP Registered Nurse; Visit Provider Registered Nurse
DX: M53.3 Sacrococcygeal disorders, not elsewhere classified (principal); K59.00 Constipation, unspecified; M51.26 Other intervertebral disc displacement, lumbar region; R10.20 Pelvic and perineal pain unspecified side; Z51.89 Encounter for other specified aftercare
CPT/HCPCS: 97012; 97110; 97112; 97140; 97161; 97164; 97535

== ENCOUNTER 2025-04-22 07:43 | Outpatient (CLI) | payer OTHER, SELFPAY | END 2025-04-22 07:44 | disposition home or self-care (01) | PROVIDERS: PCP Family Medicine; Visit Provider Family Medicine | DX: D64.9 Anemia, unspecified (principal); R53.83 Other fatigue; K59.00 Constipation, unspecified; M25.50 Pain in unspecified joint | CPT/HCPCS: 80053; 82607; 82728; 84443; 84550; 86038; 86140; 86200; 86431; 86812 ==

== ENCOUNTER 2025-05-28 10:19 | Outpatient (CLI) | payer OTHER, SELFPAY ==
[2025-05-30 00:22] LABS: CCP Antibody, IgG and IgA 4 Units (0-19)
== END 2025-05-28 10:20 | disposition home or self-care (01) ==
LOC: LAB 10:22
PROVIDERS: PCP Family Medicine; Visit Provider Internal Medicine Rheumatology
DX: M25.50 Pain in unspecified joint (principal)
CPT/HCPCS: 36415; 86200